=== PATIENT | female | born 1940 | race Caucasian/White ===

== ENCOUNTER 2020-04-01 08:51 | Outpatient (CLI) | payer OTHER, SELFPAY ==
[2020-04-01 09:19] LABS: Alanine Aminotransferase 24 U/L (4-35); Albumin Level 4.1 g/dL (3.5-5.1); Alkaline Phosphatase 31 U/L (38-126); Anion Gap 5 mmol/L (8-16); Aspartate Amino Transferase 30 U/L (14-36); Bilirubin,Total 0.4 mg/dL (0.2-1.3); Blood Urea Nitrogen 19 mg/dL (7-17); Calcium 9.3 mg/dL (8.4-10.2); Carbon Dioxide 33 mmol/L (22-30); Chloride 104 mmol/L (98-107); Cholesterol 202 mg/dL (0-200); Estimated Glomerular Filt Rate > 60; Glucose 95 mg/dL (65-105); HDL Direct 50 mg/dL; Potassium 4.3 mmol/L (3.4-5.0); Sodium 142 mmol/L (137-145); Triglycerides 64 mg/dL (<150)
[2020-04-01 09:30] LABS: LDL Cholesterol Direct 123 mg/dL
[2020-04-01 09:59] LABS: Vitamin D 25 Hydroxy 90.1 ng/mL
== END 2020-04-01 08:52 | disposition home or self-care (01) ==
PROVIDERS: PCP Internal Medicine; Visit Provider Nurse Practitioner
DX: E78.5 Hyperlipidemia, unspecified (principal); E55.9 Vitamin D deficiency, unspecified
CPT/HCPCS: 36415; 80053; 80061; 82306

== ENCOUNTER 2020-04-18 10:41 | Emergency (ER) | payer OTHER, SELFPAY ==
--- NOTE | ~2020-04-18 | XR_ITS ---
EXAMINATION: XR foot RT min 3V DATE: 04/18/2020 13:04 INDICATION: Right foot injury and pain. TECHNIQUE: 4 views of right foot were obtained. COMPARISON: None. FINDINGS: There is moderate hallux valgus. There is an oblique fracture of diaphysis of fifth metatar nico. The distal fracture fragment demonstrates 1 mm dorsal medial displacement. There is mild osteoar thritis of first metatarsophalangeal joint and many of the midfoot joints and interphalangeal joints. There are enthesophytes at the posterior and plantar aspects of calcaneal tuberosity. IMPRESSION: 1. Oblique fracture of diaphysis of fifth metatarsal. Reviewed, dictated and finalized at location A.
[2020-04-18 12:29] VITALS: BP 139/81; PULSE 72; RESP 18; TEMP 36.6; O2SAT 100
--- NOTE | 2020-04-18 14:22 | ED.LOWEXIN ---
HPI - Extremity Injury (Lower) General Chief Complaint: Extremity Injury, Lower Stated Complaint: toe injury Time Seen by Provider: 04/18/20 12:58 Source: patient Mode of arrival: ambulatory Limitations: no limitations History of Present Illness HPI Narrative: 79-year-old female This morning about 5 AM it sounds like she was scooting her chair back from a table and it caught on the rug and she fell backwards out of it and kicked the table with her right foot and has had pain in the lateral foot since that time Could not bear weight this morning but she can for a few steps now No other injuries MD complaint: foot injury Onset (ago): hour(s) Related Data Home Medications Medication Instructions Recorded Confirmed calcium carbonate 200 mg calcium See Rx Instructions PO .COMPLEX 02/23/20 04/10/20 (500 mg) chewable tablet tablet calcium carbonate 600 mg calcium 600 mg PO DAILY 02/23/20 04/10/20 (1,500 mg) tablet cholecalciferol (vitamin D3) 100 1,000 mcg PO DAILY cap 02/23/20 04/10/20 mcg (4,000 unit) capsule magnesium 250 mg tablet 250 mg PO DAILY 02/23/20 04/10/20 vit C 250 mg-E 200 unit-zinc 40 1 tablet PO BID 02/23/20 04/10/20 mg-copper 1 [id number] capsule Allergies Allergy/AdvReac Type Severity Reaction Status Date / Time amoxicillin Allergy Unknown Hives / Verified 04/18/20 12:52 Red Face Penicillins Allergy Unknown Hives Verified 04/18/20 12:52 Review of Systems Review of Systems: All systems reviewed & are unremarkable except as noted in HPI and below Constitutional: Constitutional: Denies fatigue and Denies weakness Cardiovascular: Cardiovascular: Denies chest pain Respiratory: Respiratory: Denies no additional respiratory complaints Musculoskeletal: Musculoskeletal: Denies back pain, Denies myalgias and Reports arthralgias Neurologic: Denies headache(s), Denies focal weakness and Denies numbness PMFSH Family History Family History Father Hypertension Cerebrovascular accident Patient's father is Mother Hypertension Family history of diabetes mellitus in first degree relative Family history of congestive heart failure Diabetes mellitus Sibling Family history of gastrointestinal disorder Family history of lung cancer Family history of heart disease in male family member before age 55 Patient's brother is Family history of cardiovascular disease Other Family history of malignant neoplasm of breast Social History Social History Smoking status: Never smoker Alcohol intake: never Gender identity (if verbalized by the patient): Female Exam Const: General: no acute distress and alert Orientation/consciousness: patient oriented x3 HENMT: Head: normal to inspection Eyes: EOM: EOMs intact bilaterally Resp: Effort & Inspection: normal respiratory effort Skin: General skin exam: normal color Neuro: General: patient oriented x3 and moves all extremities Extrem: Other: Tender lateral right foot with mild swelling and mild ecchymosis Course Vital Signs Vital signs: Vital Signs Temperature 36.6 C 04/18/20 12:29 Pulse Rate 72 04/18/20 12:29 Respiratory Rate 18 04/18/20 12:29 Blood Pressure 139/81 04/18/20 12:29 Pulse Oximetry 100 04/18/20 12:29 Temperature 36.6 C 04/18/20 12:29 Pulse Rate 72 04/18/20 12:29 Respiratory Rate 18 04/18/20 12:29 Blood Pressure 139/81 04/18/20 12:29 Pulse Oximetry 100 04/18/20 12:29 Discharge Plan Discharge Clinical Impression: Fracture of fifth metatarsal bone of right foot Patient Disposition: Home, Self-Care Condition: Stable Instructions: Crutch Instructions (ED), Foot Fracture in Adults (ED) Prescriptions: No Action Vitamin D3 100 mcg (4,000 unit) capsule 1,000 mcg PO DAILY RF: 0 magnesium 250
[2020-04-18 15:01] VITALS: BP 121/73; PULSE 66; RESP 17; O2SAT 100
== END 2020-04-18 15:03 | disposition home or self-care (01) ==
PROVIDERS: Emergency Provider Emergency Medicine; PCP Internal Medicine
DX: S92.351A Displaced fracture of fifth metatarsal bone, right foot, initial encounter for closed fracture (principal); W07.XXXA Fall from chair, initial encounter
CPT/HCPCS: 73630; 99284

== ENCOUNTER 2020-10-09 08:30 | Outpatient (CLI) | payer OTHER, SELFPAY ==
[2020-10-09 08:58] LABS: Add Urine Microscopic? YES; Appearance Urine Cloudy (Clear); Bacteria Urine Trace /hpf; Bilirubin Urine Negative (Negative); Blood Urine Negative (Negative); Color Urine Yellow (Yellow); Glucose Urine UA Negative (Negative); Ketones Urine Negative (Negative); Leukocyte Esterase Ur 3+ LEU/UL (Negative); Mucus Urine Rare /lpf; Nitrate Urine Negative (Negative); Protein Urine Negative (Negative); Specific Grav Ur 1.006 (1.001-1.035); Squamous Epithelial Cell Urine Occasional /hpf (Few); Urobilinogen Urine Negative mg/dL (<2.0); WBC Urine 21-30 /hpf
== END 2020-10-09 08:31 | disposition home or self-care (01) ==
PROVIDERS: PCP Internal Medicine; Visit Provider Internal Medicine
DX: R30.0 Dysuria (principal)
CPT/HCPCS: 81001; 87077; 87086; 87088; 87186

== ENCOUNTER 2021-01-14 12:40 | Outpatient (CLI) | payer OTHER, SELFPAY ==
[2021-01-14 13:13] LABS: Alanine Aminotransferase 26 U/L (4-35); Albumin Level 4.5 g/dL (3.5-5.1); Alkaline Phosphatase 40 U/L (38-126); Anion Gap 8 mmol/L (8-16); Aspartate Amino Transferase 33 U/L (14-36); Bilirubin,Total 0.3 mg/dL (0.2-1.3); Blood Urea Nitrogen 17 mg/dL (7-17); Calcium 10.3 mg/dL (8.4-10.2); Carbon Dioxide 30 mmol/L (22-30); Chloride 100 mmol/L (98-107); Cholesterol 215 mg/dL (0-200); Estimated Glomerular Filt Rate > 60; Glucose 94 mg/dL (65-105); HDL Direct 58 mg/dL; Potassium 4.2 mmol/L (3.4-5.0); Sodium 138 mmol/L (137-145); Triglycerides 108 mg/dL (<150)
[2021-01-14 13:24] LABS: LDL Cholesterol Direct 106 mg/dL
[2021-01-14 14:28] LABS: Vitamin D 25 Hydroxy > 126.0 ng/mL
== END 2021-01-14 12:41 | disposition home or self-care (01) ==
PROVIDERS: PCP Internal Medicine; Visit Provider Nurse Practitioner
DX: E78.5 Hyperlipidemia, unspecified (principal); E55.9 Vitamin D deficiency, unspecified
CPT/HCPCS: 36415; 80053; 80061; 82306

== ENCOUNTER 2021-11-02 13:06 | Emergency (ER) | payer OTHER, SELFPAY ==
--- NOTE | ~2021-11-02 | XR_ITS ---
EXAM: XR knee RT min 4V HISTORY: right knee pain, injury FALL COMPARISON: None available FINDINGS: Decreased mineralization. Mildly comminuted, minimally distracted transversely oriented fr acture of the right patella. No lytic or blastic lesion. Joint spaces maintained. No erosion or perio steal change. Moderate volume joint fluid. Soft tissues within normal limits. IMPRESSION: Mildly comminuted, minimally distracted right patellar fracture. Moderate joint effusion. Reviewed, dictated and finalized at location K.
[2021-11-02 13:06] VITALS: BP 167/76; PULSE 80; RESP 18; TEMP 36.8; O2SAT 99
--- NOTE | 2021-11-02 17:00 | ED.GENADULT ---
HPI - General Adult General Chief complaint: Extremity Injury, Lower Stated complaint: Right Knee Injury Time Seen by Provider: 11/02/21 14:21 Source: patient, family and RN notes reviewed Limitations: no limitations History of Present Illness HPI narrative: 81-year-old female presenting to the emergency department for evaluation after having a ground-level fall during which she landed on her right knee. Patient states that she did did strike her face on the ground but denies any neck pain back pain and denies any loss of consciousness. Related Data Home Medications Medication Instructions Recorded Confirmed calcium carbonate 600 mg calcium 600 mg PO DAILY 02/23/20 08/05/21 (1,500 mg) tablet magnesium 250 mg tablet 250 mg PO DAILY 02/23/20 08/05/21 vit C 250 mg-vit E 90 mg-zinc 40 1 tablet PO BID 02/23/20 01/15/21 mg-copper 1 [id number] capsule ascorbate calcium (vitamin C) 500 1 g PO BID tablet 11/25/20 08/05/21 mg tablet vitamin E 200 unit capsule 400 unit PO DAILY cap 11/25/20 08/05/21 Allergies Allergy/AdvReac Type Severity Reaction Status Date / Time amoxicillin Allergy Unknown Hives / Verified 11/02/21 13:12 Red Face Penicillins Allergy Unknown Hives Verified 11/02/21 13:12 Review of Systems Review of Systems: CONSTITUTIONAL: Denies fever, chills, or sweats. EYES: Denies visual changes, redness, or discharge. ENT: Denies rhinorrhea, congestion, sore throat, or otalgia. CARDIOVASCULAR: Denies chest pain, palpitations, or edema. RESPIRATORY: Denies cough or dyspnea. GASTROINTESTINAL: Denies abdominal pain, nausea, vomiting, or diarrhea. GENITOURINARY: Denies dysuria or hematuria. SKIN: Denies rash or itching. MUSCULOSKELETAL: See HPI NEUROLOGIC: Denies headache, numbness, or weakness. PSYCHIATRIC: Denies anxiety or depression. [facility] Past Medical History Medical History Fracture of fifth metatarsal bone History of tibial fracture Ankle Levoscoliosis Osteoarthritis of both knees Overweight (04/21/16) Screening for osteoporosis Screening mammogram, encounter for Surgical History Surgical History History of appendectomy (~1962) History of elbow surgery x2 Bones History of surgery Excision of Cyst on Tongue Family History Family History Father Hypertension Cerebrovascular accident Patient's father is Mother Hypertension Family history of diabetes mellitus in first degree relative Family history of congestive heart failure Diabetes mellitus Sibling Family history of gastrointestinal disorder Family history of lung cancer Family history of heart disease in male family member before age 55 Patient's brother is Family history of cardiovascular disease Other Family history of malignant neoplasm of breast Social History Social History Smoking status: Never smoker Second hand tobacco smoke exposure: Yes Alcohol intake: never Substance use: never Substance use type: does not use Gender identity (if verbalized by the patient): Female Exam Narrative: APPEARANCE: Well appearing, no pain, no distress, well-nourished. HEAD: normocephalic, mild swelling of the upper lip with no laceration. EYES: PERRLA/EOMI, conjunctivae clear. NOSE: Normal no drainage THROAT: Pharynx clear, no exudate. NECK: Supple. No adenopathy, no masses. RESPIRATORY: Airway patent, respirations nonlabored. Clear to auscultation bilaterally, no rales, rhonchi, wheezing. CARDIOVASCULAR: Regular rate and rhythm without murmurs rubs or gallops. ABDOMINAL: Soft, nontender, nondistended, normal bowel sounds MUSCULOSKELETAL: Tenderness to palpation and effusion of the right knee. NEURO: Alert. Cranial nerves II through XII intact. Gr
[2021-11-02 17:17] VITALS: BP 129/75; PULSE 66; RESP 18; O2SAT 98
== END 2021-11-02 17:19 | disposition home or self-care (01) ==
PROVIDERS: Emergency Provider Emergency Medicine; PCP Internal Medicine
DX: S82.041A Displaced comminuted fracture of right patella, initial encounter for closed fracture (principal); M19.90 Unspecified osteoarthritis, unspecified site; Z79.899 Other long term (current) drug therapy; Z88.0 Allergy status to penicillin; W19.XXXA Unspecified fall, initial encounter
CPT/HCPCS: 73564; 99284

== ENCOUNTER 2022-01-08 08:00 | Outpatient (RCR) | payer OTHER, SELFPAY ==
--- NOTE | 2021-12-09 17:22 | PTOPEVAL ---
PHYSICAL THERAPY INITIAL EVALUATION. Thank you for referring Irais Murphy to [facility] [place].? The patient is scheduled to be seen for therapy? 1x/week for 4 weeks. Please review, sign, date and return this plan of care RUBY. I agree with and certify that the following plan of care is medically necessary. Referring Physician Date Attending Provider: Jair Berg MD *PT Outpatient Evaluation Start: 12/09/21 Evaluation Information Diagnosis R patellar fracture Onset 1 month ago Subjective Information Pt states she fell at [employer] Query Text:As Reported By Patient/ about a month ago and Family fractured her patella. She wore a knee immobilizer for a few weeks. Pt states her still uses her walker if she is walking outside. She has no knee pain at this time. She states she walks down the stairs sideways as this causes her less pain, even before the fall. Pain Assessment Self Report Pain Assessment Right Knee(s) Reported Pain Level 0 Pain Description Pinching,Soreness Greatest Pain Intensity 5 Lower Extremity Range of Motion Gross Lower Extremity Range of Motion L knee active 0-115 Comments R knee active 0-105 R knee passive flexion 106 - limited by pain Lower Extremity Muscle Strength Testing General Lower Extremity Strength WFL/Left,WFL/Right Gross Lower Extremity Strength lisa hip flexion 4/5 L knee flexion/extension 4/5 R knee flexion/extension 4-/5 - pain reported with knee extension Gait Assessment Ambulation Assistive Devices None Gait Pattern Trendelenburg Gait,Wide Based Gait Other Gait Observations lateral trunk flexion bilaterally, decreased knee flexion lisa, lack of terminal knee extension lisa Safety Assessment Factors Affecting Safety No Concerns PT Clinical Summary Irais is an active 81 y/o female who presents to therapy today following a patella fracture and one month in a knee immobilizer. Today she demonstrates increased pain with resisted muscle testing, pain with max knee flexion,
--- NOTE | 2022-01-08 08:30 | PTOPEVAL ---
PHYSICAL THERAPY PROGRESS REPORT AND DISCHARGE SUMMARY. Thank you for referring Irais Murphy to [facility].? The patient is to be discharged from skilled therapy services at this time. Please review, sign, date and return this plan of care RUBY. I agree with and certify that the following plan of care is medically necessary. Referring Physician Date Attending Provider: Jair Berg MD Evaluation Information Diagnosis R patellar fracture Onset 1 month ago Subjective Information Pt states she does not have Query Text:As Reported By Patient/ any issues with pain. She Family states she can do everything she needs to do. She states she has a history of knee pain but this feels better as well after completing therapy. Pain Assessment Right Knee(s) Reported Pain Level 0 Greatest Pain Intensity 0 Lower Extremity Range of Motion Gross Lower Extremity Range of Motion L knee active 0-115 Comments R knee active 0-122 Lower Extremity Muscle Strength Testing General Lower Extremity Strength WFL/Left,WFL/Right Gross Lower Extremity Strength lisa hip flexion 4+/5 Lisa knee flexion/extension 4+/5 no reports of increased pain Balance Assessment Timed Up and Go Test (TUG) (Seconds) 10 Assistive Devices None 5 Time Sit to Stand Time in Seconds 15.5 5 Time Sit to Stand Comments Without use of UEs Gait Assessment Gait Pattern Wide Based Gait 2 Minute Walk Total Distance Walked (feet) 325 2 Minute Walk Gait Speed Score (feet/s) 2.70 Stair Climbing Assessment Stair Climbing Assistive Devices Railings Stair Climbing Comments Pt requires single railing and minimal UE support to ascend safety, and requires 2 hand rails and Mod A of UEs to control descent. Able to ascend and descend in a reciprical pattern. Safety Assessment Factors Affecting Safety No Concerns PT Clinical Summary Irais is an active 81 y/o female who presents to therapy today following a patella fracture and one month in a knee immobilizer. Today she reports no pain at rest or any in the last week. She demonstrates equal active ROM and strength when compared to her uninvolved side. She
== END 2022-01-08 14:54 | disposition home or self-care (01) ==
LOC: ANHPT 08:00
PROVIDERS: PCP Internal Medicine; Referring Provider Orthopaedic Surgery; Visit Provider Orthopaedic Surgery
DX: S82.001D Unspecified fracture of right patella, subsequent encounter for closed fracture with routine healing (principal)
CPT/HCPCS: 97110; 97112; 97161; 97530

== ENCOUNTER 2022-01-30 15:16 | Outpatient (CLI) | payer OTHER, SELFPAY ==
[2022-01-30 16:25] LABS: Alanine Aminotransferase 21 U/L (6-35); Albumin Level 4.4 g/dL (3.5-5.1); Alkaline Phosphatase 54 U/L (38-126); Anion Gap 7 mmol/L (8-16); Aspartate Amino Transferase 24 U/L (14-36); Bilirubin,Total 0.3 mg/dL (0.2-1.3); Blood Urea Nitrogen 17 mg/dL (7-17); Calcium 9.1 mg/dL (8.4-10.2); Carbon Dioxide 30 mmol/L (22-30); Chloride 99 mmol/L (98-107); Cholesterol 224 mg/dL (0-200); Estimated Glomerular Filt Rate > 60; Glucose 128 mg/dL (65-110); HDL Direct 58 mg/dL; Potassium 4.2 mmol/L (3.4-5.0); Sodium 136 mmol/L (137-145); Triglycerides 108 mg/dL (<150)
[2022-01-30 16:36] LABS: LDL Cholesterol Direct 118 mg/dL
[2022-01-30 17:07] LABS: Vitamin D 25 Hydroxy 78.1 ng/mL
== END 2022-01-30 15:17 | disposition home or self-care (01) ==
LOC: ANHLAB 15:23
PROVIDERS: PCP Internal Medicine; Visit Provider Nurse Practitioner
DX: E78.5 Hyperlipidemia, unspecified (principal); E55.9 Vitamin D deficiency, unspecified
CPT/HCPCS: 36415; 80053; 80061; 82306

== ENCOUNTER 2022-03-30 01:13 | Emergency (ER) | payer OTHER, SELFPAY ==
--- NOTE | ~2022-03-30 | XR_ITS ---
EXAMINATION: XR hip RT 2V w AP pelvis DATE: 03/30/2022 02:42 INDICATION: Right hip pain. Fall. TECHNIQUE: An anteroposterior view of the pelvis and 2 views of right hip were obtained. COMPARISON: None. FINDINGS: There is thoracolumbar levoscoliosis and severe lumbar spondylosis. No fracture. There is m ild osteoarthritis of the hips. Calcifications in the pelvis are likely uterine fibroids. IMPRESSION: 1. Mild osteoarthritis of the hips. Reviewed, dictated and finalized at location A.
--- NOTE | ~2022-03-30 | XR_ITS ---
EXAMINATION: XR wrist RT min 3V DATE: 03/30/2022 02:42 INDICATION: Right wrist pain. Fall. TECHNIQUE: 4 views of right wrist were obtained. COMPARISON: None. FINDINGS: Bone alignment is normal. No fracture. There is mild osteoarthritis of triscaphe joint and severe osteoarthritis of first carpometacarpal joint. There is a loose body in first carpometacarpal joint. IMPRESSION: 1. Polyarticular osteoarthritis. Reviewed, dictated and finalized at location A.
--- NOTE | ~2022-03-30 | XR_ITS ---
EXAMINATION: XR elbow RT min 3V DATE: 03/30/2022 02:41 INDICATION: Right elbow pain. Fall. TECHNIQUE: 4 views of right elbow were obtained. COMPARISON: None. FINDINGS: Bone alignment is normal. No acute fracture. There is internal fixation of proximal ulna wi th 2 plates with screws. There is mild elbow joint osteoarthritis. No elbow joint effusion. There are enthesophytes at medial and lateral humeral epicondyles. IMPRESSION: 1. Mild elbow joint osteoarthritis. Reviewed, dictated and finalized at location A.
--- NOTE | ~2022-03-30 | CT_ITS ---
EXAMINATION: CT brain wo con DATE: 03/30/2022 02:12 INDICATION: Head injury. TECHNIQUE: Computed tomography (CT) of the head was performed without intravenous contrast. The mA wa s adjusted according to patient size. Iterative reconstruction technique was employed. The dose-lengt h product was 605.33 mGy-cm. COMPARISON: None FINDINGS: There are scattered areas of low attenuation in the cerebral white matter. There is no intr acranial hemorrhage, acute infarction, or abnormal intracranial mass lesion. There are old infarcts i n the bilateral basal ganglia. The ventricles are normal in size. The paranasal sinuses are clear. Th e mastoid air cells are normal. IMPRESSION: 1. Old infarcts in the bilateral basal ganglia. 2. Moderate nonspecific cerebral white matter disease, which likely represents chronic small vessel i schemic disease. Reviewed, dictated and finalized at location A. IMPRESSION: 1. Old infarcts in the bilateral basal ganglia. 2. Moderate nonspecific cerebral white matter disease, which likely represents chronic small vessel ischemic disease.
--- NOTE | ~2022-03-30 | XR_ITS ---
EXAMINATION: XR shoulder RT min 2V DATE: 03/30/2022 02:41 INDICATION: Right shoulder pain. Fall. TECHNIQUE: 4 views of right shoulder were obtained. COMPARISON: None. FINDINGS: Bone alignment is normal. No fracture. There is moderate osteoarthritis of glenohumeral shanelle nt and mild osteoarthritis of acromioclavicular joint. IMPRESSION: 1. Polyarticular osteoarthritis. Reviewed, dictated and finalized at location A.
--- NOTE | ~2022-03-30 | CT_ITS ---
EXAMINATION: CT cervical spine wo con DATE: 03/30/2022 02:12 INDICATION: Neck pain status post fall. TECHNIQUE: Computed tomography (CT) of the cervical spine was performed without intravenous contrast. The dose-length product was 213 mGy-cm. Automated exposure control and iterative reconstruction tech nique were employed. COMPARISON: None FINDINGS: Straightening of cervical lordosis. There is degenerative anterolisthesis at C4-5 and C7-T1 . There is moderate multilevel uncinate and facet hypertrophy. No significant paraspinal soft tissue abnormality. There is patchy consolidation of the upper lobes, suspicious for pneumonia. No acute fra cture or traumatic malalignment. Craniovertebral junction is normal. IMPRESSION: 1. No acute abnormality of the cervical spine. 2: Moderate cervical spondylosis. 3: Patchy apical airspace disease in the lungs, suspicious for pneumonia. Reviewed, dictated and finalized at location B.
[2022-03-30 01:18] VITALS: BP 143/80; PULSE 67; RESP 20; TEMP 36.8; O2SAT 99
--- NOTE | 2022-03-30 01:28 | ED.GENADULT ---
HPI - General Adult General Chief complaint: Fall Stated complaint: fall with hematoma to head Time Seen by Provider: 03/30/22 01:20 History of Present Illness HPI narrative: Patient 81-year-old female who presents the emergency department with chief complaint of fall. Patient reports that she was tripped by her dog's at home and reports that she fell striking her right side against the ground. Patient reports she struck her head against a cabinet reports that she has a contusion on her scalp and also reports that she has some discomfort in her neck. Patient also reports shoulder pain right elbow pain and right wrist pain and right hip pain. Patient states the pain is worse with movement and improved with rest. Related Data Home Medications Medication Instructions Recorded Confirmed calcium carbonate 600 mg calcium 600 mg PO DAILY 02/23/20 02/16/22 (1,500 mg) tablet (Calcium) magnesium 250 mg tablet 250 mg PO DAILY 02/23/20 02/16/22 vit C 250 mg-vit E 90 mg-zinc 40 1 tablet PO BID 02/23/20 02/16/22 mg-copper 1 [id number] capsule (PreserVision AREDS-2) ascorbate calcium (vitamin C) 500 1 g PO BID 11/25/20 02/16/22 mg tablet vitamin E 200 unit capsule 400 unit PO DAILY 11/25/20 02/16/22 aflibercept 2 mg/0.05 mL 2 mg intravitreal ONCE 11/06/21 02/16/22 intravitreal solution for injection (Eylea) Allergies Allergy/AdvReac Type Severity Reaction Status Date / Time amoxicillin Allergy Unknown Hives / Verified 02/16/22 07:35 Red Face Penicillins Allergy Unknown Hives Verified 02/16/22 07:35 Review of Systems Review of Systems: A 10 system review of systems was completed on the patient and is negative except for what is stated in the HPI. Nursing and ancillary documentation was reviewed. COUNT INCLUDES THE [facility] Past Medical History Medical History (Updated 03/30/22 @ 03:21 by Adarsh Munguia MD) Allergies Arthritis Fracture of fifth metatarsal bone History of tibial fracture Ankle Levoscoliosis MS (multiple sclerosis) Nondisplaced fracture of right patella Osteoarthritis of both knees Overweight (04/21/16) Screening for osteoporosis Screening mammogram, encounter for Surgical History Surgical History History of ankle surgery History of appendectomy (~1962) History of elbow surgery x2 Bones History of surgery Excision of Cyst on Tongue Family History Family History Father Hypertension Cerebrovascular accident Patient's father is Mother Hypertension Family history of diabetes mellitus in first degree relative Family history of congestive heart failure Diabetes mellitus Sibling Family history of gastrointestinal disorder Family history of lung cancer Family history of heart disease in male family member before age 55 Patient's brother is Family history of cardiovascular disease Other Family history of malignant neoplasm of breast Social History Social History Smoking status: Never smoker Second hand tobacco smoke exposure: Yes Alcohol intake: never Substance use: never Substance use type: does not use Gender identity (if verbalized by the patient): Female Exam Narrative: GENERAL: Well-appearing, well-nourished, and in no acute distress. HEAD: Normocephalic, small contusion present to the occipital region of the scalp. EYES: PERRLA and EOMI. ENT: Nares clear, no rhinorrhea or epistaxis. Mucous membranes moist. NECK: Supple. CHEST: Clear to auscultation. No respiratory distress. HEART: Regular rate and rhythm. No murmur heard. Normal peripheral pulses. ABDOMEN: Soft, nontender, nondistended, normal active bowel sounds. EXTREMITIES: Normal range of motion. No edema. There is tenderness to palpation of the right shoulder, right elbow, right wrist and rig
[2022-03-30 01:37] VITALS: PULSE 69; RESP 12; O2SAT 96
[2022-03-30 02:37] VITALS: PULSE 63; RESP 12; O2SAT 96
[2022-03-30 03:25] VITALS: BP 145/75; PULSE 72; RESP 16; O2SAT 98
== END 2022-03-30 03:25 | disposition home or self-care (01) ==
PROVIDERS: Emergency Provider Emergency Medicine; PCP Internal Medicine
DX: S00.03XA Contusion of scalp, initial encounter (principal); S50.01XA Contusion of right elbow, initial encounter; S40.011A Contusion of right shoulder, initial encounter; S70.01XA Contusion of right hip, initial encounter; G35 Multiple sclerosis; M17.0 Bilateral primary osteoarthritis of knee; E66.3 Overweight; M16.0 Bilateral primary osteoarthritis of hip; M19.031 Primary osteoarthritis, right wrist; M19.011 Primary osteoarthritis, right shoulder; M19.021 Primary osteoarthritis, right elbow; R90.82 White matter disease, unspecified; M47.812 Spondylosis without myelopathy or radiculopathy, cervical region; R91.8 Other nonspecific abnormal finding of lung field; W01.0XXA Fall on same level from slipping, tripping and stumbling without subsequent striking against object, initial encounter
CPT/HCPCS: 70450; 72125; 73030; 73080; 73110; 73502; 99284

== ENCOUNTER 2022-09-02 16:47 | Emergency (ER) | payer OTHER, SELFPAY ==
[2022-09-02 17:23] VITALS: BP 145/69; PULSE 73; RESP 16; TEMP 36.3; O2SAT 99
[2022-09-02 18:35] VITALS: BP 136/79; PULSE 74; RESP 16; TEMP 36.7; O2SAT 100
[2022-09-02 20:25] LABS: Appearance Urine Clear (Clear); Bilirubin Urine Negative (Negative); Blood Urine Trace-lysed (Negative); Color Urine Light Yellow (Yellow); Glucose Urine UA Negative (Negative); Ketones Urine Negative (Negative); Leukocyte Esterase Ur 3+ LEU/UL (Negative); Nitrate Urine Positive (Negative); Protein Urine Negative (Negative); Specific Grav Ur 1.015 (1.001-1.035); Urobilinogen Urine 0.2 mg/dL (<2.0)
--- NOTE | 2022-09-02 20:26 | ED.FEMALEGU ---
HPI - Female Genitourinary General Chief complaint: Urogenital-Female Stated complaint: UTI/ urinary prolapse Time Seen by Provider: 09/02/22 20:13 History of Present Illness HPI Narrative: Patient is an 81-year-old female with a history of bladder prolapse here for evaluation of dysuria and swollen genitals for the past 2 days. Patient states that when she urinates she has noticed a small amount of blood in her urine in addition to a thick white vaginal discharge. She states that she looked at her pelvic region and noticed that her genitals were swollen and irritated to touch. She has a history of bladder prolapse and has seen a administrative support associate in the past, was offered a pessary and declined because she thought it was uncomfortable. She denies any urinary retention, lower abdominal pain, nausea or vomiting, fevers or chills. Related Data Home Medications Medication Instructions Recorded Confirmed calcium carbonate 600 mg calcium 600 mg PO DAILY 02/23/20 08/25/22 (1,500 mg) tablet (Calcium) magnesium 250 mg tablet 250 mg PO DAILY 02/23/20 08/25/22 vit C 250 mg-vit E 90 mg-zinc 40 1 tablet PO BID 02/23/20 08/25/22 mg-copper 1 [id number]-[id number] capsule (PreserVision AREDS-2) ascorbate calcium (vitamin C) 500 1 g PO BID 11/25/20 08/25/22 mg tablet vitamin E 200 unit capsule 400 unit PO DAILY 11/25/20 08/25/22 aflibercept 2 mg/0.05 mL 2 mg intravitreal ONCE 11/06/21 08/25/22 intravitreal solution for injection (Eylea) cholecalciferol (vitamin D3) 50 50 mcg PO DAILY 08/25/22 08/25/22 mcg (2,000 unit) tablet Allergies Allergy/AdvReac Type Severity Reaction Status Date / Time amoxicillin Allergy Unknown Hives / Verified 08/25/22 07:44 Red Face Penicillins Allergy Unknown Hives Verified 08/25/22 07:44 Review of Systems Review of Systems: Gen.: Denies fevers or chills Eyes: Denies eye pain or visual change ENT: Denies congestion Respiratory: Denies shortness of breath or cough CV: Denies chest pain or palpitations GI: Denies abdominal pain nausea, emesis or diarrhea reports genitalia swelling and dysuria. Musculoskeletal: Denies back pain or muscle pain Neuro: Denies numbness, tingling, weakness or focal weakness Skin: Denies rash Except as documented, all other systems reviewed and negative [facility] Past Medical History Medical History Allergies Arthritis Fracture of fifth metatarsal bone History of tibial fracture Ankle Levoscoliosis MS (multiple sclerosis) Nondisplaced fracture of right patella Osteoarthritis of both knees Overweight (04/21/16) Screening for osteoporosis Screening mammogram, encounter for Surgical History Surgical History History of ankle surgery History of appendectomy (~196) History of elbow surgery x2 Bones History of surgery Excision of Cyst on Tongue Family History Family History Father Hypertension Cerebrovascular accident Patient's father is Mother Hypertension Family history of diabetes mellitus in first degree relative Family history of congestive heart failure Diabetes mellitus Sibling Family history of gastrointestinal disorder Family history of lung cancer Family history of heart disease in male family member before age 55 Patient's brother is Family history of cardiovascular disease Other Family history of malignant neoplasm of breast Social History Social History Smoking status: Never smoker Second hand tobacco smoke exposure: Yes Alcohol intake: never Substance use: never Substance use type: does not use Living arrangements: with family Gender identity (if verbalized by the patient): Female Exam Narrative: APPEARANCE: Well appearing, no pain in
[2022-09-02 20:35] LABS: Add Urine Microscopic? YES
[2022-09-02 20:44] LABS: Mucus Urine Rare /lpf; WBC Clumps Urine Present /HPF; WBC Urine >75 /hpf
[2022-09-02 21:12] VITALS: BP 136/72; PULSE 80; RESP 16; O2SAT 99
[2022-09-02 21:40] LABS: Bacteria Urine 1+ /hpf
== END 2022-09-02 21:12 | disposition home or self-care (01) ==
PROVIDERS: Emergency Medicine; Emergency Provider Physician Assistant; PCP Nurse Practitioner
DX: N39.0 Urinary tract infection, site not specified (principal); M19.90 Unspecified osteoarthritis, unspecified site
CPT/HCPCS: 81001; 87070; 87086; 87147; 87186; 87491; 87591; 87808; 99284

== ENCOUNTER 2022-09-19 08:25 | Outpatient (CLI) | payer OTHER, SELFPAY ==
[2022-09-19 09:42] LABS: Alanine Aminotransferase 22 U/L (6-35); Albumin Level 4.6 g/dL (3.5-5.1); Alkaline Phosphatase 34 U/L (38-126); Anion Gap 4 mmol/L (8-16); Aspartate Amino Transferase 27 U/L (14-36); Bilirubin,Total 0.6 mg/dL (0.2-1.3); Blood Urea Nitrogen 11 mg/dL (7-17); Calcium 9.1 mg/dL (8.4-10.2); Carbon Dioxide 33 mmol/L (22-30); Chloride 104 mmol/L (98-107); Cholesterol 180 mg/dL (0-200); Estimated Glomerular Filt Rate > 60; Glucose 95 mg/dL (65-110); HDL Direct 67 mg/dL; Potassium 3.9 mmol/L (3.4-5.0); Sodium 141 mmol/L (137-145); Triglycerides 48 mg/dL (<150)
[2022-09-19 09:53] LABS: LDL Cholesterol Direct 88 mg/dL
[2022-09-19 10:14] LABS: Vitamin D 25 Hydroxy 75.7 ng/mL
== END 2022-09-19 08:26 | disposition home or self-care (01) ==
PROVIDERS: PCP Internal Medicine; Visit Provider Nurse Practitioner Family
DX: Z00.00 Encounter for general adult medical examination without abnormal findings (principal); E55.9 Vitamin D deficiency, unspecified; N39.0 Urinary tract infection, site not specified
CPT/HCPCS: 36415; 80053; 80061; 82306

== ENCOUNTER 2022-09-25 06:46 | Outpatient (CLI) | payer OTHER, SELFPAY ==
[2022-09-25 07:44] LABS: Appearance Urine Clear (Clear); Bacteria Urine 1+ /hpf; Bilirubin Urine Negative (Negative); Blood Urine Negative (Negative); Color Urine Yellow (Yellow); Glucose Urine UA Negative (Negative); Ketones Urine Negative (Negative); Leukocyte Esterase Ur Trace LEU/UL (NEGATIVE); Nitrate Urine Negative (Negative); Non Pathogenic Casts 0-2; Protein Urine Negative (Negative); RBC Urine 0-2 /hpf (0-2); Specific Grav Ur 1.009 (1.001-1.035); Squamous Epithelial Cell Urine None seen /hpf (Few); Urobilinogen Urine 0.2 mg/dL (<2.0); WBC Urine 0-5 /hpf (0-3)
[2022-09-25 07:51] LABS: Add Urine Microscopic? YES
== END 2022-09-25 06:47 | disposition home or self-care (01) ==
LOC: ANHLAB 06:49
PROVIDERS: PCP Internal Medicine; Visit Provider Nurse Practitioner Family
DX: N39.0 Urinary tract infection, site not specified (principal)
CPT/HCPCS: 81001; 87086; 87147; 87181; 87186

== ENCOUNTER 2023-04-07 12:30 | Outpatient (CLI) | payer OTHER, SELFPAY ==
--- NOTE | ~2023-04-07 | MR_ITS ---
EXAMINATION: MR brain/brain stem wo/w con, MR orbits face neck wo/w con DATE: 04/07/2023 14:49 INDICATION: Multiple sclerosis TECHNIQUE: 1. Magnetic resonance imaging (MRI) of the brain and brainstem was performed without and with 11 mL M ultihance intravenous contrast. Sequences included sagittal and axial T1-weighted FLAIR, axial T1-gifty ghted FSE, axial diffusion-weighted FS EPI, sagittal T2-weighted FLAIR, axial 3-D SWAN, axial T2-weig hted FLAIR Propeller, and axial T2-weighted Propeller. Postcontrast sequences included axial, coronal , and sagittal T1-weighted FSE. Apparent diffusion coefficient (ADC) maps were created. 2. MRI of the face and orbits was performed without and with 11 mL MultiHance intravenous contrast ut ilizing the same contrast bolus. Sequences included small ntzhl-kl-bwjv sequences of the orbits inclu ded coronal and axial T2-weighted FS FSE, T1-weighted FSE and postcontrast T1-weighted FS FSE. COMPARISON: Brain MR dated 12/26/2018 FINDINGS: There are no areas of restricted diffusion to suggest acute infarction. No intracranial hemorrhage or abnormal intracranial mass lesion. No significant interval change in numerous bilateral T2 hyperinte nse lesions which are primarily juxtacortical and periventricular, the latter with typical radiating pericallosal pattern consistent with provided history of multiple sclerosis. This was previously paula mated at greater than 40 total lesions but many are becoming essentially confluent rendering differen tiation of indeterminate lesions somewhat challenging and the assessment somewhat subjective. There a djacent rib new lesion in the left cerebellum best appreciated on the sagittal T2 FLAIR image. A few of the larger lesions demonstrate corresponding decreased T1 signal. None of the intracranial lesions demonstrate contrast enhancement. There is however an enhancing lesion along the left optic nerve at the posterior aspect of the conus. No abnormal enhancement or signal along the right optic nerve. Th e ventricles are symmetric and normal in size. There are no abnormal extra-axial fluid collections. F low voids are seen in the cerebral arteries on the T2-weighted sequences consistent with their expect ed patency. Changes of bilateral intraocular lens replacement. Mild mucosal thickening the bilateral ethmoid sinuses. IMPRESSION: 1. New small left cerebellar white matter T2 hyperintense lesion with otherwise no significant change in moderate amount of cerebral white matter T2 hyperintensity, many lesions with typical pericallosa l pattern for multiple sclerosis consistent with consistent with the provided history. Differential w ould also include chronic small vessel ischemic disease or some degree of combination thereof. 2. New enhancing lesion along the left optic nerve consistent with active multiple sclerosis. Correla te with ophthalmic exam and for any new visual deficits. Reviewed, dictated and finalized at location A. IMPRESSION: 1. New small left cerebellar white matter T2 hyperintense lesion with otherwise no significant change in moderate amount of cerebral white matter T2 hyperinte nsity, many lesions with typical pericallosal pattern for multiple sclerosis co nsistent with consistent with the provided history. Differential would also inc lude chronic small vessel ischemic disease or some degree of combination thereo f. 2. New enhancing lesion along the left optic nerve consistent with active multi ple sclerosis. Correlate with ophthalmic exam and for any new visual deficits.
--- NOTE | ~2023-04-07 | MR_ITS ---
MRI of the thoracic spine Clinical History: Multiple sclerosis Technique: Axial T2-weighted and gradient images, and sagittal T1-weighted, T2-weighted, and STIR nidhi ges were acquired.. Following intravenous administration of 11 cc MultiHance gadolinium, T1-weighted fat-sat imaging was performed in the axial and sagittal planes. Findings: There is no fracture or subluxation of the thoracic spine. Vertebral bodies maintain normal height and alignment. No suspicious bone marrow signal abnormality seen. There is disc osteophyte complex at T7-T8, which minimally flattens the ventral cord. There is focal prominence of the central canal the spinal cord at the T7 level (series 29 images 31-34). No other ar eas of canal stenosis or cord compression identified. No other abnormal signal seen in the spinal cor d. Paravertebral soft tissues are unremarkable. No abnormal postcontrast enhancement identified. 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 No abnormal postcontrast enhancement identified in the spina l cord. Disc osteophyte complex at T7-T8, which minimally flattens the ventral cord. Reviewed, dictated and finalized at location M. 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 No abnormal postcontrast enhancement i dentified in the spinal cord. Disc osteophyte complex at T7-T8, which minimally flattens the ventral cord.
--- NOTE | ~2023-04-07 | MR_ITS ---
MRI of the cervical spine Clinical History: Multiple sclerosis Technique: Axial T2-weighted and gradient images, and sagittal T1-weighted, T2-weighted, and STIR nidhi ges were acquired. Following intravenous administration of 11 cc MultiHance gadolinium, T1-weighted f at-sat imaging was performed in the sagittal planes. Findings: There is no fracture of cervical spine. There is minimal grade 1 anterolisthesis of C4 over C5. No suspicious bone marrow signal abnormality seen. At C2-C3, there is no disc bulge or herniation. No spinal canal stenosis, cord compression, or neural foraminal narrowing. At C3-C4, there is minimal disc osteophyte complex. There is right facet arthropathy with right neura l foraminal narrowing. No central canal stenosis, cord compression, or left neural foraminal narrowin g. At C4-C5, there is minimal disc osteophyte complex. There is bilateral facet arthropathy. Possible mi nimal left neural foraminal narrowing. No central canal stenosis, cord compression, or right neural f oraminal narrowing. At C5-C6, there is disc osteophyte complex and bilateral facet arthropathy. There is bilateral neural foraminal narrowing. No central canal stenosis or cord compression. At C6-C7, there is disc osteophyte complex. There is minimal facet arthropathy. Possible minimal left neural foraminal narrowing. No central canal stenosis, cord compression, or definite right neural fo raminal narrowing. No abnormal signal seen in the spinal cord. Paravertebral soft tissues are unremarkable. No abnormal postcontrast enhancement identified. Impression: No abnormal spinal cord lesions in the cervical spine. Mild degenerative spondylosis of the cervical spine, as detailed above. Reviewed, dictated and finalized at [facility]. Impression: No abnormal spinal cord lesions in the cervical spine. Mild degenerative spondylosis of the cervical spine, as detailed above.
== END 2023-04-07 12:31 | disposition home or self-care (01) ==
PROVIDERS: PCP Nurse Practitioner Family; Visit Provider Student in an Organized Health Care Education/Training Program
DX: G35 Multiple sclerosis (principal); M47.812 Spondylosis without myelopathy or radiculopathy, cervical region; M25.78 Osteophyte, vertebrae
CPT/HCPCS: 70543; 70553; 72156; 72157; A9577

== ENCOUNTER 2023-04-09 15:22 | Inpatient (IN) | payer OTHER, SELFPAY ==
[2023-04-09 15:25] VITALS: BP 162/76; PULSE 66; RESP 19; TEMP 36.4; O2SAT 100
[2023-04-09 17:12] LABS: Basophils Percent Auto 0.7 % (0.2-1.2); Eosinophils Absolute Auto 0.1 K/mm3 (0-0.3); Eosinophils Percent Auto 2.7 % (0-4.4); Hematocrit 36.9 % (37.0-47.0); Hemoglobin 11.8 g/dL (12.0-15.0); Immature Granulocyte Absolute 0.01 K/mm3 (0.00-0.031); Immature Granulocyte Percent A 0.2 % (0-0.5); Lymphocytes Absolute Auto 1.14 K/mm3 (0.9-3.2); Lymphocytes Percent Auto 28.1 % (18.3-44.2); Mean Corpuscular Hemoglobin 30.2 pg (26-34); Mean Corpuscular Volume 94.4 fl (80-100); Mean Platelet Volume 10.7 fl (7.4-10.4); Monocytes Absolute Auto 0.3 K/mm3 (0.1-0.6); Monocytes Percent Auto 7.1 % (2.6-8.5); Neutrophils Absolute Auto 2.5 K/mm3 (1.3-6.7); Neutrophils Percent Auto 61.2 % (45.5-73.1); Platelet Count Result 145 k/mm3 (150-375); Red Blood Count 3.91 M/mm3 (4.2-5.4); White Blood Count 4.1 K/mm3 (4.5-10.0)
[2023-04-09 17:26] LABS: Alanine Aminotransferase 20 U/L (6-35); Albumin Level 4.1 g/dL (3.5-5.1); Alkaline Phosphatase 35 U/L (38-126); Anion Gap 5 mmol/L (8-16); Aspartate Amino Transferase 27 U/L (14-36); Bilirubin,Total 0.4 mg/dL (0.2-1.3); Blood Urea Nitrogen 16 mg/dL (7-17); CRP < 0.5 mg/dL (<1.0); Carbon Dioxide 28 mmol/L (22-30); Chloride 103 mmol/L (98-107); Estimated CRCL calculation 68 ml/min; Estimated Glomerular Filt Rate > 60; Glucose 97 mg/dL (65-110); Potassium 3.9 mmol/L (3.4-5.0); Sodium 136 mmol/L (137-145)
[2023-04-09 18:03] LABS: Erythrocyte Sedimentation Rate 18 mm/hr (0-20)
--- NOTE | 2023-04-09 18:07 | ED.EYEPROB ---
HPI - Eye Problem General Chief complaint: Eye Problems Stated complaint: eye problems Time Seen by Provider: 04/09/23 15:33 History of Present Illness HPI Narrative: This is an 82-year-old female, with history of macular degeneration, who presents emergency department recommendation by neurologist, Dr. Low for multiple sclerosis. The patient states over the past 8 weeks, she is noted worsening vision. She was evaluated by Dr. Low, and MRI demonstrated changes consistent with optic neuritis. She has no other complaints at this time. Related Data Home Medications Medication Instructions Recorded Confirmed calcium carbonate 600 mg calcium 600 mg PO DAILY 02/23/20 03/11/23 (1,500 mg) tablet (Calcium) magnesium 250 mg tablet 250 mg PO DAILY 02/23/20 03/11/23 ascorbate calcium (vitamin C) 500 1 g PO BID 11/25/20 03/11/23 mg tablet vitamin E 200 unit capsule 400 unit PO DAILY 11/25/20 03/11/23 aflibercept 2 mg/0.05 mL 2 mg intravitreal ONCE 11/06/21 03/11/23 intravitreal solution for injection (Eylea) cholecalciferol (vitamin D3) 50 50 mcg PO DAILY 08/25/22 03/11/23 mcg (2,000 unit) tablet amino acid-hydrolyzed ea PO 03/11/23 03/11/23 collagen-whey 15 gram-100 kcal/30 mL oral liquid vit C 250 mg-vit E 90 mg-zinc 40 1 tablet PO BID 03/18/23 mg-copper 1 [id number]-gzvdit capsule (PreserVision AREDS-2) Allergies Allergy/AdvReac Type Severity Reaction Status Date / Time amoxicillin Allergy Unknown Hives / Verified 03/18/23 07:30 Red Face Penicillins Allergy Unknown Hives Verified 03/18/23 07:30 Review of Systems Review of Systems: CONSTITUTIONAL: Denies fever, chills, or sweats. EYES: Progressive loss of vision denies redness, or discharge. CARDIOVASCULAR: Denies chest pain, palpitations, or edema. RESPIRATORY: Denies cough or dyspnea. GASTROINTESTINAL: Denies abdominal pain, nausea, vomiting, or diarrhea. GENITOURINARY: Denies dysuria or hematuria. SKIN: Denies rash or itching. MUSCULOSKELETAL: Denies back pain, joint pain, or myalgia. NEUROLOGIC: Denies headache, numbness, dizziness, or weakness. PSYCHIATRIC: Denies anxiety or depression. [facility] Past Medical History Medical History Allergies Arthritis Fracture of fifth metatarsal bone History of tibial fracture Ankle Levoscoliosis MS (multiple sclerosis) Nondisplaced fracture of right patella Osteoarthritis of both knees Overweight (04/21/16) Screening for osteoporosis Screening mammogram, encounter for Surgical History Surgical History History of ankle surgery History of appendectomy (~1961) History of elbow surgery x2 Bones History of surgery Excision of Cyst on Tongue Family History Family History Father Hypertension Cerebrovascular accident Patient's father is Mother Hypertension Family history of diabetes mellitus in first degree relative Family history of congestive heart failure Diabetes mellitus Sibling Family history of gastrointestinal disorder Family history of lung cancer Family history of heart disease in male family member before age 55 Patient's brother is Family history of cardiovascular disease Other Family history of malignant neoplasm of breast Social History Social History Smoking status: Never smoker Second hand tobacco smoke exposure: Yes Alcohol intake: never Substance use: never Substance use type: does not use Lack of Transportation: No Lack of Food: Never True Current Housing: I Have Housing Concerned About Future Housing: No Difficulty Paying Gas/Electric Bills: No Difficulty Paying for Meds: No Currently Unemployed: No Education: High School Diploma/GED Living arrangements: domi
[2023-04-09 19:18] VITALS: BP 148/86; PULSE 72; RESP 15; O2SAT 99
[2023-04-09] MEDS: methylPREDNISolone SOD SUCC 500 MG in DEXTROSE 5% 100 ML 200 MG IVPB (19:18)
--- NOTE | 2023-04-09 20:13 | ADMGEN ---
This patient, Irais Murphy, was admitted to 2 Medical Room 256-. Patient/family oriented to hospital policies and general routines including ID bracelet, bed and alarms, visiting hours, pain management, procedures, bathroom and other care routines, personal items, smoking policy, room service/diet, and visiting hours. Information on how to activate the Rapid Response Team has been discussed. Patient/Family are encouraged to report perceived risks to care and to ask questions if they do not understand what they are told or what they should do.
[2023-04-09 20:22] VITALS: BP 157/70; PULSE 76; RESP 16; TEMP 36.6; O2SAT 96; BMI 24.6
--- NOTE | 2023-04-09 23:30 | PM.IMHP ---
H&P: HPI History of Present Illness Date/Time: 04/09/23 23:30 Chief Complaint: Decreased vision in left eye. Narrative: This is a very pleasant 82-year-old female with multiple sclerosis who presented to the ED for evaluation of decreased vision in left eye. The patient provides the following history. She was diagnosed with MS in 2000 though she was never treated with disease modifying therapies. Over the last year so she has developed a decrease in vision in the left eye which seems to be getting worse. She has occasional dysphagia but that is not a new finding. She had imaging done yesterday per Dr. Low and she was told to come to the ER for admission in order to receive IV steroids due to new enhancing lesion along the left optic nerve consistent with active MS. At the time my evaluation she has no complaints. Review of Systems Review of Systems: Twelve systems were reviewed. No vertigo. No focal weakness. No concerns for aspiration. Denies difficulty speaking. No fever, chills, or sweats. She denies recent cold and flu symptoms. No chest pain shortness a breath. No nausea, vomiting, or diarrhea. Except as documented, all other systems were reviewed and are negative. [facility] Past Medical History Medical History (Updated 04/11/23 @ 14:47 by Sravani Jade PA-C) Allergies Arthritis Multiple sclerosis Osteoarthritis of both knees Surgical History Surgical History (Updated 04/11/23 @ 14:47 by Sravani Jade PA-C) History of ankle surgery History of appendectomy (1961) History of elbow surgery Family History Family History Father Hypertension Cerebrovascular accident Patient's father is Mother Hypertension Family history of diabetes mellitus in first degree relative Family history of congestive heart failure Diabetes mellitus Sibling Family history of gastrointestinal disorder Family history of lung cancer Family history of heart disease in male family member before age 55 Patient's brother is Family history of cardiovascular disease Other Family history of malignant neoplasm of breast Social History Social History (Updated 04/11/23 @ 14:48 by Sravani Jade PA-C) Social History: Surrogate medical decision maker: Kinza Dunn, daughter. Code status: Full code. Smoking status: Never smoker Second hand tobacco smoke exposure: Yes Alcohol intake: never Substance use: never Substance use type: does not use Lack of Transportation: No Lack of Food: Never True Current Housing: I Have Housing Concerned About Future Housing: No Difficulty Paying Gas/Electric Bills: No Difficulty Paying for Meds: No Currently Unemployed: No Education: High School Diploma/GED Difficulty w/ Childcare or Family Care: No Living arrangements: with family Spiritual care concerns: No Meds Home Medications and Allergies Home Medications Medication Instructions Recorded Confirmed Type calcium carbonate 600 mg calcium 600 mg PO DAILY 02/23/20 04/09/23 History (1,500 mg) tablet (Calcium) magnesium 250 mg tablet 250 mg PO DAILY 02/23/20 04/09/23 History ascorbate calcium (vitamin C) 500 1 g PO BID 11/25/20 04/09/23 History mg tablet vitamin E 200 unit capsule 400 unit PO DAILY 11/25/20 04/09/23 History aflibercept 2 mg/0.05 mL 2 mg intravitreal ONCE 11/06/21 04/09/23 History intravitreal solution for injection (Eylea) cholecalciferol (vitamin D3) 50 50 mcg PO DAILY 08/25/22 04/09/23 History mcg (2,000 unit) tablet amino acid-hydrolyzed 1 ea PO DAILY 03/11/23 04/09/23 History collagen-whey 15 gram-100 kcal/30 mL oral liquid vit C 250 mg-vit E 90 mg-zinc 40 1 tablet PO BID 03/18/23 04/09/23 History mg-copper 1 [id number]-[id number] capsule (PreserVision AREDS-2) Allergies Allergy/AdvReac Type Severity Reaction Status Date / Time am
[2023-04-10 03:39] LABS: Basophils Percent Auto 0.3 % (0.2-1.2); Hemoglobin 12.7 g/dL (12.0-15.0); Immature Granulocyte Absolute 0.01 K/mm3 (0.00-0.031); Immature Granulocyte Percent A 0.3 % (0-0.5); Lymphocytes Absolute Auto 0.42 K/mm3 (0.9-3.2); Lymphocytes Percent Auto 10.6 % (18.3-44.2); Mean Corpuscular HGB Conc 33.4 g/dl (32-36); Mean Corpuscular Hemoglobin 30.8 pg (26-34); Mean Platelet Volume 10.9 fl (7.4-10.4); Monocytes Percent Auto 0.5 % (2.6-8.5); Neutrophils Absolute Auto 3.5 K/mm3 (1.3-6.7); Neutrophils Percent Auto 88.3 % (45.5-73.1); Platelet Count Result 150 k/mm3 (150-375); Red Blood Count 4.13 M/mm3 (4.2-5.4); Red Cell Distribution Width 12.7 % (11.5-14.5)
[2023-04-10 04:09] LABS: Anion Gap 0 mmol/L (8-16); Blood Urea Nitrogen 15 mg/dL (7-17); Calcium 9.1 mg/dL (8.4-10.2); Carbon Dioxide 32 mmol/L (22-30); Chloride 106 mmol/L (98-107); Estimated CRCL calculation 68 ml/min; Estimated Glomerular Filt Rate > 60; Glucose 157 mg/dL (65-110); Magnesium 2.1 mg/dL (1.6-2.3); Potassium 3.7 mmol/L (3.4-5.0); Sodium 138 mmol/L (137-145)
[2023-04-10 04:40] LABS: Thyroid Stimulating Hormone Reflex 0.613 uIU/mL (0.465-4.68)
[2023-04-10 04:44] VITALS: BP 138/69; PULSE 75; RESP 20; TEMP 36.6; O2SAT 96
--- NOTE | 2023-04-10 08:04 | PM.IMPN ---
Progress Note: A&P Assessment and Plan (1) Left optic neuritis: Code(s): H46.9 - Unspecified optic neuritis Status: Acute Assessment and Plan: Active MS flare seen on MRI. Direct admit by Dr Low Starting methylprednisone 500 gram BID Neurology following the case. Assistance in management is appreciated. WBC 4.0 (2) Multiple sclerosis: Code(s): G35 - Multiple sclerosis Status: Acute Assessment and Plan: see above (3) Suprapubic pain: Code(s): R10.2 - Pelvic and perineal pain Status: Acute Assessment and Plan: States this has been ongoing for the last few months. Last UTI was in 09/24 per our records. Per the patient she stopped taking her antibiotic because she did not like the way it made her feel. having suprapubic pain urinary frequency and hesitancy obtain U/a and reflex to culture. started on rocephin empirically Subjective Date/time seen: 04/10/23 08:04 Interval history: HPI obtained from chart, This is a very pleasant 82-year-old female with multiple sclerosis who presented to the ED for evaluation of decreased vision in left eye. The patient provides the following history. She was diagnosed with MS in 2000 though she was never treated with disease modifying therapies. Over the last year so she has developed a decrease in vision in the left eye which seems to be getting worse. She has occasional dysphagia but that is not a new finding. She had imaging done yesterday per Dr. Low and she was told to come to the ER for admission in order to receive IV steroids due to new enhancing lesion along the left optic nerve consistent with active MS. 04/10-extremely pleasant lady who says that she is just here for few steroids. She reports that she has of vision changes to her left eye. She says that she can see when looking at the television however when she is looking at her phone or trying to read the letters are blurry, malin and distorted. She has intermittent pain to her left eye as well. She also complains of some lower suprapubic and lower abdominal pain. She says that she recently was treated for UTI however she did not care for the antibiotic so she stopped taking it in hopes that the infection would resolve. That was back in September of this year and she says that her symptoms of lower abdominal pain, frequency, and hesitancy have continued. Will obtain urine specimen today check for UTI. Review of Systems Review of Systems: All systems reviewed & are unremarkable except as noted in HPI and below Exam Narrative: General: well appearing, well developed, well nourished, appears stated age. HEENT: normocephalic, atraumatic. Mucous membranes moist. EOMI, PERRLA, bilateral sclera anicteric, no conjunctival injection. Neck supple without JVD, lymphadenopathy, or bruit. Respiratory: clear to auscultation bilaterally. No rales/rhonic/wheezes. Cardiovascular: Regular rate and rhythm, normal S1-S2 upon auscultation. No murmurs, rubs, or clicks. PMI is nondisplaced, capillary re-fill less than 3 second. Abdomen: Soft, round, no pulsatile masses, non-distended and mildly tender to suprapubic and lower mid abdominal region. No rebound, no guarding. No CVA tenderness, no hepatosplenomegaly. Bowel sounds present to all four quadrants. No high pitch or tinkling sounds, resonant to percussion. Extremities: No cyanosis, clubbing, or edema present. Pulses are palpable 2/2. Active ROM to all four extremities. Neuro: Alert and orientated x 4. PERRLA. Cranial nerves 2-12 intact without focal deficit. Skin: Warm, dry, and intact, without rash, erythema, or lesion. Lines: PIV Incisions: n/a Psych: pleasant, cooperative, normal speech, normal affect, no hallucinations, no dysarthria Objective Data Vital Signs Vital Signs: Vital Signs - 24 hr 04/09/23 15:25 04/09/23 19:18 04/09/23 20:18 Temperature 97.6 F Pulse Rate 66 72 Respiratory Rate 19 15 Blo
[2023-04-10] MEDS: CHOLECALCIFEROL 1,000 UNITS TABLET 2000 UNITS PO (08:36)
[2023-04-10] MEDS: MAGNESIUM OXIDE 200 MG TABLET PO (08:36)
[2023-04-10] MEDS: ASCORBIC ACID 500 MG TABLET 1000 MG PO ×2 (08:37→16:48)
[2023-04-10] MEDS: OPTI-GEN TAB 1 TABLET PO (08:37)
[2023-04-10] MEDS: VITAMIN E 400 UNIT CAPSULE PO (08:37)
[2023-04-10] MEDS: CALCIUM CARBONATE (OSCAL) 500 MG TABLET PO (08:37)
[2023-04-10] MEDS: methylPREDNISolone SOD SUCC 500 MG in DEXTROSE 5% 100 ML 200 MG IVPB ×2 (09:10→14:10)
[2023-04-10 11:57] LABS: Appearance Urine Cloudy (Clear); Bacteria Urine 4+ /hpf; Bilirubin Urine Negative (Negative); Blood Urine Negative (Negative); Color Urine Yellow (Yellow); Glucose Urine UA Negative (Negative); Ketones Urine Negative (Negative); Leukocyte Esterase Ur 3+ LEU/UL (Negative); Nitrate Urine Positive (Negative); Non Pathogenic Casts 0-2; Protein Urine Negative (Negative); Specific Grav Ur 1.015 (1.001-1.035); Squamous Epithelial Cell Urine None seen /hpf (Few); Urobilinogen Urine 0.2 mg/dL (<2.0); WBC Urine 21-50 /hpf; pH Urine 6.5 (5.0-9.0)
[2023-04-10 12:09] LABS: Add Urine Microscopic? YES
--- NOTE | 2023-04-10 12:38 | WPDNEURCNPN ---
Assessment and Plan Assessment and plan (1) Multiple sclerosis: Code(s): G35 - Multiple sclerosis Status: Acute (2) Left optic neuritis: Code(s): H46.9 - Unspecified optic neuritis Status: Acute Plan 1. History of demyelinating disease documented by all the studies in the past including spinal fluid studies 2. Recent increasing the visual difficulties with ongoing history of macular degeneration left optic nerve new enhancing lesion for which patient has been admitted for the high-dose IV Medrol treatment because of the increasing the visual difficulties superimposed on the macular degeneration. Treatment will be continued as such Consult date: 04/10/23 HPI: Irais Murphy is a 82 year old female Admitted to the hospital through the emergency room for the complaints of increasing visual difficulties in addition to the ongoing history of 1. Demyelinating disease for which she has never been treated 2. Macular degeneration. Her medications at the time of admissions included all the supplement and she is reportedly allergic to penicillins and amoxicillin. She does have ongoing history of documented multiple sclerosis evaluated by Dr. Barkley long time ago in [place] with the spinal fluid studies as well. Additionally she has history of multiple fractures. She is a never alcohol intake never substance user and her initial exam in the emergency room was grossly nonfocal her evaluation in the ER documented thrombocytopenia with platelets of 145, CBC with hemoglobin 11.8 and platelets 145 BMP with sodium 136 and she has been started on steroid treatment already. Her brain MRI on April 07, 2023 revealed new small left cerebellar white matter lesions in addition to pericallosal lesions of old nature and ring enhancing lesion along the left optic nerve. Orbital MRI again documented the left optic nerve lesion she was also documented to have new lesions on the cerebellum at the level of T7 he was found to have minimal syrinx and cervical spine was normal [facility] Past Medical History Medical History Allergies Arthritis Fracture of fifth metatarsal bone History of tibial fracture Ankle Levoscoliosis MS (multiple sclerosis) Nondisplaced fracture of right patella Osteoarthritis of both knees Overweight (04/21/16) Screening for osteoporosis Screening mammogram, encounter for Surgical History Surgical History History of ankle surgery History of appendectomy (~1961) History of elbow surgery x2 Bones History of surgery Excision of Cyst on Tongue Family History Family History Father Hypertension Cerebrovascular accident Patient's father is Mother Hypertension Family history of diabetes mellitus in first degree relative Family history of congestive heart failure Diabetes mellitus Sibling Family history of gastrointestinal disorder Family history of lung cancer Family history of heart disease in male family member before age 55 Patient's brother is Family history of cardiovascular disease Other Family history of malignant neoplasm of breast Social History Social History Smoking status: Never smoker Second hand tobacco smoke exposure: Yes Alcohol intake: never Substance use: never Substance use type: does not use Lack of Transportation: No Lack of Food: Never True Current Housing: I Have Housing Concerned About Future Housing: No Difficulty Paying Gas/Electric Bills: No Difficulty Paying for Meds: No Currently Unemployed: No Education: High School Diploma/GED Difficulty w/ Childcare or Family Care: No Living arrangements: with family Gender identity (if verbalized by the patient): Female Sandro
[2023-04-10 13:23] VITALS: BP 154/68; PULSE 97; RESP 18; TEMP 37.1; O2SAT 94
[2023-04-10 19:59] VITALS: BP 149/69; PULSE 82; RESP 16; TEMP 37; O2SAT 95
[2023-04-10 21:50] VITALS: O2SAT 95
[2023-04-11 05:42] LABS: Basophils Percent Auto 0.1 % (0.2-1.2); Hematocrit 34.5 % (37.0-47.0); Hemoglobin 11.4 g/dL (12.0-15.0); Immature Granulocyte Absolute 0.05 K/mm3 (0.00-0.031); Immature Granulocyte Percent A 0.4 % (0-0.5); Lymphocytes Absolute Auto 0.73 K/mm3 (0.9-3.2); Lymphocytes Percent Auto 6.2 % (18.3-44.2); Mean Corpuscular Hemoglobin 30.9 pg (26-34); Mean Corpuscular Volume 93.5 fl (80-100); Mean Platelet Volume 11.5 fl (7.4-10.4); Monocytes Absolute Auto 0.4 K/mm3 (0.1-0.6); Monocytes Percent Auto 3.7 % (2.6-8.5); Neutrophils Absolute Auto 10.5 K/mm3 (1.3-6.7); Neutrophils Percent Auto 89.6 % (45.5-73.1); Platelet Count Result 154 k/mm3 (150-375); Red Blood Count 3.69 M/mm3 (4.2-5.4); Red Cell Distribution Width 13.1 % (11.5-14.5); White Blood Count 11.8 K/mm3 (4.5-10.0)
[2023-04-11 06:00] VITALS: BP 127/62; PULSE 65; RESP 18; TEMP 36.6; O2SAT 95
[2023-04-11 06:03] LABS: Alanine Aminotransferase 19 U/L (6-35); Albumin Level 3.6 g/dL (3.5-5.1); Alkaline Phosphatase 34 U/L (38-126); Anion Gap 4 mmol/L (8-16); Aspartate Amino Transferase 22 U/L (14-36); Bilirubin,Total 0.4 mg/dL (0.2-1.3); Blood Urea Nitrogen 14 mg/dL (7-17); Calcium 8.9 mg/dL (8.4-10.2); Carbon Dioxide 27 mmol/L (22-30); Chloride 105 mmol/L (98-107); Estimated CRCL calculation 76 ml/min; Estimated Glomerular Filt Rate > 60; Glucose 132 mg/dL (65-110); Magnesium 2.1 mg/dL (1.6-2.3); Potassium 3.5 mmol/L (3.4-5.0); Sodium 136 mmol/L (137-145)
[2023-04-11] MEDS: CHOLECALCIFEROL 1,000 UNITS TABLET 2000 UNITS PO (08:25)
[2023-04-11] MEDS: VITAMIN E 400 UNIT CAPSULE PO (08:25)
[2023-04-11] MEDS: ASCORBIC ACID 500 MG TABLET 1000 MG PO ×2 (08:25→16:57)
[2023-04-11] MEDS: MAGNESIUM OXIDE 200 MG TABLET PO (08:25)
[2023-04-11] MEDS: CALCIUM CARBONATE (OSCAL) 500 MG TABLET PO (08:25)
[2023-04-11] MEDS: methylPREDNISolone SOD SUCC 1,000 MG in DEXTROSE 5% 100 ML 200 MG IVPB (08:25)
[2023-04-11] MEDS: OPTI-GEN TAB 1 TABLET PO (08:25)
--- NOTE | 2023-04-11 08:26 | PM.IMPN ---
Progress Note: A&P Assessment and Plan (1) Left optic neuritis: Code(s): H46.9 - Unspecified optic neuritis Status: Acute Assessment and Plan: Active MS flare seen on MRI. Direct admit by Dr Low Starting methylprednisone [address] Darnell through 04/12 Neurology following the case. Assistance in management is appreciated. WBC 4.0-->11.8 reactive from steroids Blood glucose stable on BMP 157, 132 (2) Multiple sclerosis: Code(s): G35 - Multiple sclerosis Status: Acute Assessment and Plan: see above (3) Suprapubic pain: Code(s): R10.2 - Pelvic and perineal pain Status: Acute Assessment and Plan: States this has been ongoing for the last few months. Last UTI was in 09/24 per our records. Per the patient she stopped taking her antibiotic because she did not like the way it made her feel. having suprapubic pain urinary frequency and hesitancy obtain U/a and reflex to culture. U/A + for UTI started on rocephin empirically Added Pyridium for pain Plan Feeding:Regular diet Analgesia: tylenol and Pyridium Thromboembolic prophylaxis: scd Ulcer prophylaxis: na Glycemic control: monitor on BMP Bowel regimen: na Lines: piv Antibiotics: rocephin High-dose steroids today and tomorrow, then reassess with Neurology Subjective Date/time seen: 04/11/23 08:26 Interval history: HPI obtained from chart, This is a very pleasant 82-year-old female with multiple sclerosis who presented to the ED for evaluation of decreased vision in left eye. The patient provides the following history. She was diagnosed with MS in 2000 though she was never treated with disease modifying therapies. Over the last year so she has developed a decrease in vision in the left eye which seems to be getting worse. She has occasional dysphagia but that is not a new finding. She had imaging done yesterday per Dr. Low and she was told to come to the ER for admission in order to receive IV steroids due to new enhancing lesion along the left optic nerve consistent with active MS. 04/10-extremely pleasant lady who says that she is just here for few steroids. She reports that she has of vision changes to her left eye. She says that she can see when looking at the television however when she is looking at her phone or trying to read the letters are blurry, malin and distorted. She has intermittent pain to her left eye as well. She also complains of some lower suprapubic and lower abdominal pain. She says that she recently was treated for UTI however she did not care for the antibiotic so she stopped taking it in hopes that the infection would resolve. That was back in September of this year and she says that her symptoms of lower abdominal pain, frequency, and hesitancy have continued. Will obtain urine specimen today check for UTI. 04/11-Mrs. Murphy is doing well this morning. She says she had difficult time sleeping last night. She just was not tired and cannot get sleep. Suspect this is related to her IV steroids. I did tell her that she does in fact have a UTI we started her on treatment for that. Is getting Pyridium for bladder anesthesia. She has no new questions or concerns. Review of Systems Review of Systems: All systems reviewed & are unremarkable except as noted in HPI and below Exam Narrative: General: well appearing, well developed, well nourished, appears stated age. HEENT: normocephalic, atraumatic. Mucous membranes moist. EOMI, PERRLA, bilateral sclera anicteric, no conjunctival injection. Neck supple without JVD, lymphadenopathy, or bruit. Respiratory: clear to auscultation bilaterally. No rales/rhonic/wheezes. Cardiovascular: Regular rate and rhythm, normal S1-S2 upon auscultation. No murmurs, rubs, or clicks. PMI is nondisplaced, capillary re-fill less than 3 second. Abdomen: Soft, round, no pulsatile masses, non-distended and mildly tender to suprapubic an
[2023-04-11 10:13] VITALS: O2SAT 96
[2023-04-11] MEDS: PHENAZOPYRIDINE HCL 100 MG TABLET 200 MG PO ×2 (11:37→16:57)
[2023-04-11 14:00] VITALS: BP 143/81; PULSE 79; RESP 18; TEMP 37.2; O2SAT 95
[2023-04-11 20:58] VITALS: BP 127/80; PULSE 66; RESP 20; TEMP 36.3; O2SAT 94
[2023-04-12 05:44] VITALS: BP 148/64; PULSE 66; RESP 18; TEMP 36.4; O2SAT 92
[2023-04-12 06:06] LABS: Basophils Percent Auto 0.1 % (0.2-1.2); Hematocrit 35.1 % (37.0-47.0); Hemoglobin 11.3 g/dL (12.0-15.0); Immature Granulocyte Absolute 0.06 K/mm3 (0.00-0.031); Immature Granulocyte Percent A 0.6 % (0-0.5); Immature Platelet Fraction Pct 7.3 % (0.9-11.2); Lymphocytes Absolute Auto 0.67 K/mm3 (0.9-3.2); Lymphocytes Percent Auto 7.1 % (18.3-44.2); Mean Corpuscular HGB Conc 32.2 g/dl (32-36); Mean Corpuscular Hemoglobin 30.4 pg (26-34); Mean Corpuscular Volume 94.4 fl (80-100); Mean Platelet Volume 11.8 fl (7.4-10.4); Monocytes Absolute Auto 0.5 K/mm3 (0.1-0.6); Monocytes Percent Auto 5.5 % (2.6-8.5); Neutrophils Absolute Auto 8.2 K/mm3 (1.3-6.7); Neutrophils Percent Auto 86.7 % (45.5-73.1); Platelet Count Result 134 k/mm3 (150-375); Red Blood Count 3.72 M/mm3 (4.2-5.4); Red Cell Distribution Width 13.2 % (11.5-14.5); White Blood Count 9.5 K/mm3 (4.5-10.0)
[2023-04-12 06:13] LABS: Alanine Aminotransferase 20 U/L (6-35); Albumin Level 3.4 g/dL (3.5-5.1); Alkaline Phosphatase 31 U/L (38-126); Anion Gap 4 mmol/L (8-16); Aspartate Amino Transferase 23 U/L (14-36); Bilirubin,Total 0.3 mg/dL (0.2-1.3); Blood Urea Nitrogen 19 mg/dL (7-17); Calcium 8.5 mg/dL (8.4-10.2); Carbon Dioxide 29 mmol/L (22-30); Chloride 105 mmol/L (98-107); Estimated CRCL calculation 78 ml/min; Estimated Glomerular Filt Rate > 60; Glucose 111 mg/dL (65-110); Magnesium 2.3 mg/dL (1.6-2.3); Potassium 3.4 mmol/L (3.4-5.0); Sodium 138 mmol/L (137-145)
--- NOTE | 2023-04-12 08:33 | PM.IMPN ---
Progress Note: A&P Assessment and Plan (1) Left optic neuritis: Code(s): H46.9 - Unspecified optic neuritis Status: Acute Assessment and Plan: 04/11/23 Active MS flare seen on MRI. Direct admit by Dr Low Starting methylprednisone [address] Darnell through 04/12 Neurology following the case. Assistance in management is appreciated. WBC 4.0-->11.8 reactive from steroids Blood glucose stable on BMP 157, 132 04/12/23 Patient finished methylprednisone, plan for prednisone taper per Neurology recommendation Neurology following Blood glucose is stable, trending 111-157 (2) Multiple sclerosis: Code(s): G35 - Multiple sclerosis Status: Acute Assessment and Plan: see above 04/12/23: Patient will benefit from an MS specialist on an outpatient basis per neurology recommendation. (3) Urinary tract infection: Code(s): N39.0 - Urinary tract infection, site not specified Status: Inactive Assessment and Plan: 04/11/23: States this has been ongoing for the last few months. Last UTI was in 09/24 per our records. Per the patient she stopped taking her antibiotic because she did not like the way it made her feel. having suprapubic pain urinary frequency and hesitancy obtain U/a and reflex to culture. U/A + for UTI started on Rocephin empirically Added Pyridium for pain 04/12/23: Urine culture positive for Klebsiella pneumoniae on final report, currently on Rocephin will switch to Cefdinir today after discussion with pharmacist on coverage options. Continue peridium for pain (4) Suprapubic pain: Code(s): R10.2 - Pelvic and perineal pain Status: Acute Assessment and Plan: See above Time Spent With Patient Time with patient: Greater than 35 minutes Subjective Date/time seen: 04/12/23 08:33 Interval history: HPI obtained from chart, This is a very pleasant 82-year-old female with multiple sclerosis who presented to the ED for evaluation of decreased vision in left eye. The patient provides the following history. She was diagnosed with MS in 2000 though she was never treated with disease modifying therapies. Over the last year so she has developed a decrease in vision in the left eye which seems to be getting worse. She has occasional dysphagia but that is not a new finding. She had imaging done yesterday per Dr. Low and she was told to come to the ER for admission in order to receive IV steroids due to new enhancing lesion along the left optic nerve consistent with active MS. 04/10-extremely pleasant lady who says that she is just here for few steroids. She reports that she has of vision changes to her left eye. She says that she can see when looking at the television however when she is looking at her phone or trying to read the letters are blurry, malin and distorted. She has intermittent pain to her left eye as well. She also complains of some lower suprapubic and lower abdominal pain. She says that she recently was treated for UTI however she did not care for the antibiotic so she stopped taking it in hopes that the infection would resolve. That was back in September of this year and she says that her symptoms of lower abdominal pain, frequency, and hesitancy have continued. Will obtain urine specimen today check for UTI. 04/11-Mrs. Murphy is doing well this morning. She says she had difficult time sleeping last night. She just was not tired and cannot get sleep. Suspect this is related to her IV steroids. I did tell her that she does in fact have a UTI we started her on treatment for that. Is getting Pyridium for bladder anesthesia. She has no new questions or concerns. 04/12: Patient is alert and oriented x3. She states that her vision is much better today. She is also being treated for a urinary tract infection this admission. Urine culture showing Klebsiella pneumoniae, antibiotic coverage discussed with pharmacist and we will switch f
[2023-04-12] MEDS: CALCIUM CARBONATE (OSCAL) 500 MG TABLET PO (08:44)
[2023-04-12] MEDS: PHENAZOPYRIDINE HCL 100 MG TABLET 200 MG PO ×3 (08:44→16:34)
[2023-04-12] MEDS: VITAMIN E 400 UNIT CAPSULE PO (08:44)
[2023-04-12 08:45] VITALS: RESP 18; O2SAT 92
[2023-04-12] MEDS: ASCORBIC ACID 500 MG TABLET 1000 MG PO ×2 (08:45→16:34)
[2023-04-12] MEDS: CHOLECALCIFEROL 1,000 UNITS TABLET 2000 UNITS PO (08:45)
[2023-04-12] MEDS: MAGNESIUM OXIDE 200 MG TABLET PO (08:45)
[2023-04-12] MEDS: OPTI-GEN TAB 1 TABLET PO (08:45)
[2023-04-12] MEDS: methylPREDNISolone SOD SUCC 1,000 MG in DEXTROSE 5% 100 ML 200 MG IVPB (08:55)
--- NOTE | 2023-04-12 11:49 | WPDNEUROPN ---
Progress Note: A&P Assessment and Plan (1) Multiple sclerosis: Code(s): G35 - Multiple sclerosis Status: Acute (2) Left optic neuritis: Code(s): H46.9 - Unspecified optic neuritis Status: Acute Plan Ms. Murphy is an 82 year old female with a history of MS, not on any therapies. She had concerns regarding her vision worsening over time, she does have a history of macular degeneration in both eyes. MRI orbit was revealing for active left optic neuritis. Currently admitted receiving high dose steroids. Vision has improved since admission, patient tolerating medication well. - Continue Solumedrol 500mg BID for full course of five days -- followed by prednisone taper: 60mg/d x 4 days, 40mg/d x 4 days, 20mg/d for 4 days. - I discussed with patient that given her age, it will probably be best for her to follow-up with an MS specialist moving forwards, we will help coordinate that once she is discharged - UTI treatment per hospitalists Subjective Date/time seen: 04/12/23 11:49 Interval history: Ms. Barron is an 82 year old female with a history of MS. She was diagnosed with [place] [address] Renato Barkley. She never took any disease modifying therapies. Patient has macular degeneration and it is getting worse. She sees orange specks in the left eye. 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 Patient reports that she had chronic trouble swallowing. She denies any focal numbness/weakness as attacks. The dysphagia is what caused her to be diagnosed with MS. She has been more clumsy in the past year and has fallen a few times. The falling occurs mostly because of her dizziness and because of her vision. No color blindness and no painful vision loss. She has not had a swallow study for two years. She has not seen speech therapy. She had an MRI done of her brain and orbit last week that showed active left optic neuritis. She was admitted for IV steroids. She has received three days of steroids so far. She feels that her vision has improved since admission. She was also diagnosed with UTI for which she is currently being treated. Patient has never been on any disease modifying agents in the past for her MS. Review of Systems Constitutional: Constitutional: Denies chills, Denies fever(s) and Denies weight loss Eyes: Eyes: Denies diplopia and Denies loss of vision Comments: chronic vision loss ENT: Denies dizziness, Denies hearing loss and Denies tinnitus Cardiovascular: Cardiovascular: Denies chest pain, Denies syncope and Denies dyspnea Respiratory: Respiratory: Denies cough, Denies dyspnea and Denies wheezing Gastrointestinal: Gastrointestinal: Denies abdominal pain, Denies change in bowel habits and Denies vomiting Genitourinary: Genitourinary: Denies urinary incontinence Musculoskeletal: Musculoskeletal: Denies arthralgias and Denies joint swelling Integumentary/Breasts: Skin/Breast: Denies new lesions and Denies rash Neurologic: Reports as per HPI, Denies dizziness, Denies syncope and Denies loss of vision Psychiatric: Psychiatric: Denies anxiety and Denies depression Endocrine: Endocrine: Denies cold intolerance and Denies heat intolerance Hematologic/Lymphatic: Hematologic/Lymphatic: Denies easy bleeding and Denies easy bruising Allergic/Immunologic: Allergic/Immunologic: Denies no additional allergic/immunologic complaints and Denies wheezing Exam Const: General: comfortable and no acute distress HENMT: Mouth: Yes moist mucous membranes Eyes: Pupils: Equal, round and reactive pupils present EOM: EOMs intact bilaterally Resp: Effort & Inspection: normal respiratory effort Skin: General skin exam: normal color Neuro: Other: Pupils equal and reactive bilaterally, EOMI, face symmetric, facial sensation intact, tongue protrudes midline, palate midline. Shoulder shrug normal. Strength 5/5 throughout. Sensation intact throughout. FNF normal bilaterally. Language comprehension and fluenc
[2023-04-12 14:18] VITALS: BP 140/70; PULSE 60; RESP 17; TEMP 36.8; O2SAT 93
[2023-04-12 20:28] VITALS: BP 137/74; PULSE 74; RESP 18; TEMP 36.4; O2SAT 93
[2023-04-13 04:14] VITALS: BP 147/89; PULSE 63; RESP 18; TEMP 36.3; O2SAT 95
[2023-04-13 05:56] LABS: Basophils Percent Auto 0.1 % (0.2-1.2); Hematocrit 35.1 % (37.0-47.0); Hemoglobin 11.3 g/dL (12.0-15.0); Immature Granulocyte Absolute 0.04 K/mm3 (0.00-0.031); Immature Granulocyte Percent A 0.6 % (0-0.5); Immature Platelet Fraction Pct 7.7 % (0.9-11.2); Lymphocytes Absolute Auto 0.71 K/mm3 (0.9-3.2); Lymphocytes Percent Auto 10.6 % (18.3-44.2); Mean Corpuscular HGB Conc 32.2 g/dl (32-36); Mean Corpuscular Hemoglobin 30.5 pg (26-34); Mean Corpuscular Volume 94.6 fl (80-100); Mean Platelet Volume 11.6 fl (7.4-10.4); Monocytes Absolute Auto 0.4 K/mm3 (0.1-0.6); Monocytes Percent Auto 6.3 % (2.6-8.5); Neutrophils Absolute Auto 5.5 K/mm3 (1.3-6.7); Neutrophils Percent Auto 82.4 % (45.5-73.1); Platelet Count Result 128 k/mm3 (150-375); Red Blood Count 3.71 M/mm3 (4.2-5.4); Red Cell Distribution Width 13.1 % (11.5-14.5); White Blood Count 6.7 K/mm3 (4.5-10.0)
[2023-04-13 06:12] LABS: Anion Gap 4 mmol/L (8-16); Blood Urea Nitrogen 17 mg/dL (7-17); Calcium 8.4 mg/dL (8.4-10.2); Carbon Dioxide 28 mmol/L (22-30); Chloride 105 mmol/L (98-107); Estimated CRCL calculation 78 ml/min; Estimated Glomerular Filt Rate > 60; Glucose 104 mg/dL (65-110); Potassium 3.7 mmol/L (3.4-5.0); Sodium 137 mmol/L (137-145)
[2023-04-13] MEDS: PHENAZOPYRIDINE HCL 100 MG TABLET 200 MG PO ×3 (10:53→18:55)
[2023-04-13] MEDS: ASCORBIC ACID 500 MG TABLET 1000 MG PO ×2 (10:54→17:45)
[2023-04-13] MEDS: CEFDINIR 300 MG CAPSULE PO (10:54)
[2023-04-13] MEDS: CHOLECALCIFEROL 1,000 UNITS TABLET 2000 UNITS PO (10:54)
[2023-04-13] MEDS: MAGNESIUM OXIDE 200 MG TABLET PO (10:54)
[2023-04-13] MEDS: CALCIUM CARBONATE (OSCAL) 500 MG TABLET PO (10:54)
[2023-04-13] MEDS: OPTI-GEN TAB 1 TABLET PO (10:54)
[2023-04-13] MEDS: VITAMIN E 400 UNIT CAPSULE PO (10:54)
[2023-04-13 14:37] VITALS: BP 137/60; PULSE 59; RESP 16; TEMP 36.7; O2SAT 91
--- NOTE | 2023-04-13 17:10 | PM.DS ---
DS: Admitting Diagnosis Discharge Date 04/13/23 Admitting Diagnosis Left optic neuritis Multiple sclerosis DS: Discharge Diagnosis Discharge Diagnosis (1) Left optic neuritis: Code(s): H46.9 - Unspecified optic neuritis Status: Acute (2) Multiple sclerosis: Code(s): G35 - Multiple sclerosis Status: Acute (3) Urinary tract infection: Code(s): N39.0 - Urinary tract infection, site not specified Status: Inactive (4) Suprapubic pain: Code(s): R10.2 - Pelvic and perineal pain Status: Acute DS: Summary Hospital Course Reason for hospitalization: Optic neuritis and UTI Hospital Course: This is an 82-year-old female with a significant past medical history of multiple sclerosis who presented to the emergency room for evaluation of decreased vision in the left eye on 04/09/2023. Patient states that she has had MS since 2000. Over the last year she developed a decrease in vision in the left eye which seem to be getting worse. She had imaging done per Dr. Low and was told to present to the ER for IV steroids due to new enhancing lesion along the left optic nerve consistent with active MS. Patient was given high-dose steroids for the past 5 days with improvement in her vision. She was also found to have a urinary tract infection with Klebsiella pneumoniae. She was put on Rocephin IV until sensitivities came back and now she has been transitioned to cefdinir while inpatient. We will send her home with another 7 day course of cefdinir and she will need to follow up with her primary care physician for her UTI. Order placed for prednisone taper for the next [address] Low. She will follow-up in [address] Low as well. She would also need to look into getting an MS specialist that deals with these types of problems. Patient has no new complaints on exam today. She is ready for discharge. Status at Discharge Cognitive/behavioral status at discharge: Alert and oriented x3 Functional status at discharge: independent ambulation Overall status at discharge: patient is progressing back to baseline Time Spent with Patient Time attestation: Total time spent providing and/or coordinating discharge services: Time spent: Greater than 30 minutes Exam Narrative: General: well appearing, well developed, well nourished, appears stated age. HEENT: normocephalic, atraumatic. Mucous membranes moist.PERRLA, no conjunctival injection. Neck: supple without JVD, lymphadenopathy, or bruit. Trachea midline Respiratory: Lungs clear to auscultation bilaterally. No adventitious lung sounds. Cardiovascular: Regular rate and rhythm, normal S1-S2 upon auscultation. No murmurs noted. Abdomen: Soft, round,non-distended. She remains mildly tender to suprapubic and lower mid abdominal region however she is on Pyridium. No rebound, no guarding. Bowel sounds present to all four quadrants and normoactive. Extremities: No cyanosis, clubbing, or edema present. Pulses are palpable 2/2. Active ROM to all four extremities. Neuro: Alert and orientated x 4. PERRLA. No focal deficit. Skin: Warm, dry, and intact, without rash, erythema, or lesion. Psych: pleasant, cooperative, normal speech, normal affect. DS: Data Data Completed and Pending Completed studies during hospitalization: Brain MRI Orbits/face/neck MRI Thoracic spine MRI Cervical spine MRI Pending studies at discharge: None Labs on day of discharge: Labs from last 24 hours 04/13/23 05:16 WBC 6.7 RBC 3.71 L Hgb 11.3 L Hct 35.1 L MCV 94.6 MCH 30.5 MCHC 32.2 RDW 13.1 Plt Count 128 L MPV 11.6 H Immature Gran % (Auto) 0.6 H Neut % (Auto) 82.4 H Lymph % (Auto) 10.6 L [place] % (Auto) 6.3 Eos % (Auto) 0.0 Baso % (Auto) 0.1 L Lymph # (Auto) 0.71 L [place] # (Auto) 0.4 Eos # (Auto) 0.0 Baso # (Auto) 0.0 Abs Immat Gran (auto) 0.04 H Absolute Neuts (auto) 5.5 Absolute Nucleated RBC 0.0 Nucleated RBC %
[2023-04-13] MEDS: methylPREDNISolone SOD SUCC 500 MG in DEXTROSE 5% 100 ML 200 MG IVPB (18:04)
== END 2023-04-13 19:15 | disposition home or self-care (01) | DRG 59 ==
LOC: ANHED 15:51 → ANH3MEDSUR 19:00 → ANH2MED 19:17
PROVIDERS: Nurse Practitioner Acute Care; Physician Assistant; Admitting Provider Student in an Organized Health Care Education/Training Program; Emergency Provider Preventive Medicine Aerospace Medicine; PCP Nurse Practitioner Family; Visit Provider Nurse Practitioner Acute Care
DX: G35 Multiple sclerosis (principal); H46.8 Other optic neuritis; N39.0 Urinary tract infection, site not specified; R10.2 Pelvic and perineal pain; B96.1 Klebsiella pneumoniae [K. pneumoniae] as the cause of diseases classified elsewhere; H35.3290 Exudative age-related macular degeneration, unspecified eye, stage unspecified; M19.90 Unspecified osteoarthritis, unspecified site; M17.0 Bilateral primary osteoarthritis of knee; R13.19 Other dysphagia; Z90.49 Acquired absence of other specified parts of digestive tract
CPT/HCPCS: 36415; 70543; 70553; 72156; 72157; 80048; 80053; 81001; 82607; 83735; 84443; 85025; 85055; 85652; 86140; 87077; 87086; 87186; 96365; 99285; A9270; A9577; G0378; J0696; J2930

== ENCOUNTER 2023-09-22 12:30 | Outpatient (CLI) | payer OTHER, SELFPAY ==
--- NOTE | ~2023-09-22 | MR_ITS ---
MRI of the cervical spine Clinical History: Multiple sclerosis Technique: Axial T2-weighted and gradient images, and sagittal T1-weighted, T2-weighted, and STIR nidhi ges were acquired. Following intravenous administration of 11 cc MultiHance gadolinium, T1-weighted f at-sat imaging was performed in the axial and sagittal planes. COMPARISON: 04/07/2023 Findings: No acute fracture identified. Stable minimal grade 1 anterolisthesis of C4 over C5. Osseous alignment is unchanged. No suspicious bone marrow signal abnormality seen. At C2-C3, there is no disc bulge or herniation. No spinal canal stenosis, cord compression, or neural foraminal narrowing. At C3-C4, there is tiny disc osteophyte complex. There is probable right neural foraminal narrowing w ith bilateral facet arthropathy, right worse than left. No central canal stenosis or cord compression . At C4-C5, there is minimal disc ossify complex and bilateral facet arthropathy. No central canal sten osis, cord compression, or definite neural foraminal narrowing. At C5-C6, there is advanced degenerative disc narrowing. There is minimal disc ossify complex with bi lateral facet arthropathy. There is right neural foraminal narrowing. No definite left neural foramin al narrowing. No central canal stenosis or cord compression. At C6-C7, there is advanced degenerative distended with minimal disc ossify complex and minimal facet arthropathy. Probable minimal bilateral neural foraminal narrowing. No central canal stenosis or cor d compression. No definite abnormal signal seen in the spinal cord. Paravertebral soft tissues are unremarkable. No abnormal postcontrast enhancement identified. Impression: Mild degenerative spondylosis, similar to prior exam. No definite abnormal signal seen in the spinal cord. Reviewed, dictated and finalized at [facility]. Impression: Mild degenerative spondylosis, similar to prior exam. No definite abnormal signal seen in the spinal cord.
--- NOTE | ~2023-09-22 | MR_ITS ---
EXAMINATION: MR brain/brain stem wo/w con, MR orbits face neck wo/w con DATE: 09/22/2023 15:13 INDICATION: Multiple sclerosis with worsening vision TECHNIQUE: 1. Magnetic resonance imaging (MRI) of the brain and brainstem was performed without and with 11 mL M ultihance intravenous contrast. Sequences included sagittal and axial T1-weighted FLAIR, axial T1-gifty ghted FSE, axial diffusion-weighted FS EPI, sagittal T2-weighted FLAIR, axial T2*-weighted GRE, axial T2-weighted FLAIR Propeller, and axial T2-weighted Propeller. Postcontrast sequences included axial, coronal, and sagittal T1-weighted FSE. Apparent diffusion coefficient (ADC) maps were created. 2. MRI of the face and orbits was performed without and with 11 mL MultiHance intravenous contrast ut ilizing the same contrast bolus. Sequences included small [id number] sequences of the orbits inclu ded coronal and axial T2-weighted FS FSE, T1-weighted FSE and postcontrast T1-weighted FS FSE. COMPARISON: None. FINDINGS: There are no areas of restricted diffusion to suggest acute infarction. No intracranial hemorrhage or abnormal intracranial mass lesion. The ventricles are symmetric and normal in size. There are no abn ormal extra-axial fluid collections. Flow voids are seen in the cerebral arteries on the T2-weighted sequences consistent with their expected patency. Changes of bilateral intraocular lens replacement. Mild mucosal thickening the bilateral ethmoid sinuses. No significant interval change in numerous bilateral T2 hyperintense lesions which are primarily juxt acortical and periventricular, the latter with typical radiating pericallosal pattern consistent with provided history of multiple sclerosis and which have become essentially confluent precluding discre te numerical quantitation. A previously suspected new lesion at the left cerebellar hemisphere identi fied only on the sagittal imaging is not identified on the current study and may have been artifactua l. A few of the larger lesions demonstrate corresponding decreased T1 signal. None of the intracrania l lesions demonstrate contrast enhancement. The bilateral optic nerves appear normal on the current s tudy with no expansion, abnormal T2 signal or enhancement. IMPRESSION: 1. No significant interval change in moderate amount of cerebral white matter T2 hyperintensity many of which have become essentially confluent in the periventricular/pericallosal region with typical ap pearance for provided history of multiple sclerosis. No new or enhancing lesions identified. 2. Bilateral optic nerve canal now appear normal with no abnormal T2 hyperintense or enhancing lesion s identified. Reviewed, dictated and finalized at location A. IMPRESSION: 1. No significant interval change in moderate amount of cerebral white matter T 2 hyperintensity many of which have become essentially confluent in the periven tricular/pericallosal region with typical appearance for provided history of mu ltiple sclerosis. No new or enhancing lesions identified. 2. Bilateral optic nerve canal now appear normal with no abnormal T2 hyperinten se or enhancing lesions identified.
--- NOTE | ~2023-09-22 | MR_ITS ---
MRI of the thoracic spine Clinical History: Multiple sclerosis Technique: Axial T2-weighted and gradient images, and sagittal T1-weighted, T2-weighted, and STIR nidhi ges were acquired. Following intravenous administration of 11 cc MultiHance gadolinium, T1-weighted f at-sat imaging was performed in the axial and sagittal planes. COMPARISON: 04/07/2023 Findings: No fracture or subluxation of thoracic spine identified. Vertebral body maintain stable ali gnment. There are mild reactive marrow signal changes due to degenerative disc narrowing at multiple levels. No suspicious bone marrow signal reality seen. Disc osteophyte complex and focal disc extrusion centrally is again present at T7-T8, with mild alejandra ening/compression of the ventral cord. There is stable minimal syrinx just superior to this, at the T 7 level. No other abnormal signal seen in the spinal cord otherwise. No other significant disc bulge or herniation seen. No other spinal canal stenosis or cord compression. Paravertebral soft tissues are unremarkable. No suspicious postcontrast enhancement. Impression: Disc osteophyte complex and focal disc extrusion at T7-T8 with mild flattening/compression of the marcie tral cord, similar to minimally worsened from prior exam. Stable minimal syrinx at the T7 level, just above the area of cord compression. Reviewed, dictated and finalized at [facility]. Impression: Disc osteophyte complex and focal disc extrusion at T7-T8 with mild flattening/ compression of the ventral cord, similar to minimally worsened from prior exam. Stable minimal syrinx at the T7 level, just above the area of cord compression.
== END 2023-09-22 12:31 | disposition home or self-care (01) ==
PROVIDERS: PCP Nurse Practitioner Family; Visit Provider Student in an Organized Health Care Education/Training Program
DX: G35 Multiple sclerosis (principal); M47.892 Other spondylosis, cervical region; M25.78 Osteophyte, vertebrae; G95.29 Other cord compression
CPT/HCPCS: 70543; 70553; 72156; 72157; A9577

== ENCOUNTER 2023-10-18 23:09 | Emergency (ER) | payer OTHER, SELFPAY ==
--- NOTE | ~2023-10-18 | XR_ITS ---
AP and oblique views of the right ribs Clinical History: Pain Findings: No rib fracture is seen. Osseous alignment is anatomic. Probable biapical scarring. Lungs a re otherwise clear, without focal consolidation or pleural effusion. Cardiomediastinal contour is wit hin normal limits. Soft tissues are unremarkable. Impression: No rib fracture is seen. Reviewed, dictated and finalized at location . Impression: No rib fracture is seen.
--- NOTE | ~2023-10-18 | XR_ITS ---
EXAMINATION: XR hand RT min 3V DATE: 10/18/2023 23:34 INDICATION: Right hand injury. TECHNIQUE: 3 views of right hand were obtained. COMPARISON: None. FINDINGS: Bone alignment is normal. There is an oblique fracture of diaphysis of fourth metacarpal. T he distal fracture fragment demonstrates 1 mm dorsal ulnar displacement. There is mild osteoarthritis of triscaphe joint and severe osteoarthritis of first carpometacarpal joint. There is moderate osteo arthritis of first-third metacarpophalangeal joints. There is osteoarthritis of all of the interphala ngeal joints, severe at first interphalangeal joint and second and third distal interphalangeal joint s. IMPRESSION: 1. Oblique fracture of diaphysis of fourth metacarpal. Reviewed, dictated and finalized at location E.
--- NOTE | ~2023-10-18 | XR_ITS ---
AP and lateral views of the right scapula Clinical history: Pain FINDINGS: No acute fracture or dislocation seen. Visualized joint spaces are intact. Soft tissues are unremarkable. IMPRESSION: No significant abnormality seen. Reviewed, dictated and finalized at location M.
[2023-10-18 23:11] VITALS: BP 163/86; PULSE 80; RESP 17; TEMP 36.8; O2SAT 95
--- NOTE | 2023-10-19 01:16 | ED.UPPEXIN ---
HPI - Extremity Injury (Upper) General Chief Complaint: Extremity Injury, Upper <Gerda Bhatia PA-C - Last Filed: 10/19/23 03:56> Stated Complaint: FALL/R HAND PAIN <Gerda Bhatia PA-C - Last Filed: 10/19/23 03:56> Time Seen by Provider: 10/19/23 01:06 <Gerda Bhatia PA-C - Last Filed: 10/19/23 03:56> History of Present Illness HPI narrative: 83-year-old female presents to emergency department for right hand pain after mechanical injury that occurred today. Patient states she has 5 dogs and they were all running around her feet. States she was trying to avoid stepping on the dogs and she tripped, began to fall and grabbed the counter or with her hands out to catch herself. States her right 4th digit hyper extended and she is having pain to the dorsum of her hand. She is also reporting pain to her right shoulder blade. Denies hitting her head, loss of consciousness, neck pain or back pain, other injuries acquired. <Gerda Bhatia PA-C - Last Filed: 10/19/23 03:56> Related Data Home Medications: Home Medications Medication Instructions Recorded Confirmed calcium carbonate (Calcium 600) 600 mg PO DAILY 02/23/20 04/09/23 magnesium 250 mg tablet 250 mg PO DAILY 02/23/20 04/09/23 ascorbate calcium (vitamin C) 500 1 g PO BID 11/25/20 04/09/23 mg tablet vitamin E 200 unit capsule 400 unit PO DAILY 11/25/20 04/09/23 aflibercept 2 mg/0.05 mL 2 mg intravitreal ONCE 11/06/21 04/09/23 intravitreal solution for injection (Eylea) cholecalciferol (vitamin D3) 50 50 mcg PO DAILY 08/25/22 04/09/23 mcg (2,000 unit) tablet amino acid-hydrolyzed 1 ea PO DAILY 03/11/23 04/09/23 collagen-whey 15 gram-100 kcal/30 mL oral liquid vit C 250 mg-vit E 90 mg-zinc 40 1 tablet PO BID 03/18/23 04/09/23 mg-copper 1 [id number] capsule (PreserVision AREDS-2) <Gerda Bhatia PA-C - Last Filed: 10/19/23 03:56> Allergies/Adverse Reactions: Allergies Allergy/AdvReac Type Severity Reaction Status Date / Time amoxicillin Allergy Unknown Hives / Verified 10/19/23 00:42 Red Face Penicillins Allergy Unknown Hives Verified 10/19/23 00:42 <Gerda Bhatia PA-C - Last Filed: 10/19/23 03:56> Review of Systems Review of Systems: CONSTITUTIONAL: Denies fever, chills, or sweats. EYES: Denies visual changes, redness, or discharge. ENT: Denies rhinorrhea, congestion, sore throat, or otalgia. CARDIOVASCULAR: Denies chest pain, palpitations, or edema. RESPIRATORY: Denies cough or dyspnea. GASTROINTESTINAL: Denies abdominal pain, nausea, vomiting, or diarrhea. GENITOURINARY: Denies dysuria or hematuria. SKIN: Denies rash or itching. MUSCULOSKELETAL: See HPI NEUROLOGIC: Denies headache, numbness, or weakness. PSYCHIATRIC: Denies anxiety or depression. <Gerda Bhatia PA-C - Last Filed: 10/19/23 03:56> [facility], [facility] Past Medical History Medical History: Medical History Allergies Arthritis Multiple sclerosis Osteoarthritis of both knees <Gerda Bhatia PA-C - Last Filed: 10/19/23 03:56> Surgical History Surgical History: Surgical History History of ankle surgery History of appendectomy (1961) History of elbow surgery <Gerda Bhatia PA-C - Last Filed: 10/19/23 03:56> Family History Family History: Family History Father Hypertension Cerebrovascular accident Patient's father is Mother Hypertension Family history of diabetes mellitus in first degree relative Family history of congestive heart failure Diabetes mellitus Sibling Family history of gastrointestinal disorder Family history of lung cancer Family history of heart disease in male family member before age 55 Patient's brother is Family history of cardiovascular
[2023-10-19] MEDS: ACETAMINOPHEN 325 MG TABLET 650 MG PO (01:52)
== END 2023-10-19 02:47 | disposition home or self-care (01) ==
PROVIDERS: Emergency Provider Physician Assistant; PCP Nurse Practitioner Family
DX: S62.304A Unspecified fracture of fourth metacarpal bone, right hand, initial encounter for closed fracture (principal); G35 Multiple sclerosis; M17.0 Bilateral primary osteoarthritis of knee; W01.0XXA Fall on same level from slipping, tripping and stumbling without subsequent striking against object, initial encounter
CPT/HCPCS: 29125; 71101; 73010; 73130; 99284; A4565; A9270

== ENCOUNTER 2023-12-07 08:37 | Outpatient (CLI) | payer OTHER, SELFPAY ==
--- NOTE | ~2023-12-07 | XR_ITS ---
Right Hand Technique: PA, oblique, and lateral views were obtained. Clinical History: Fourth metacarpal fracture COMPARISON: 10/18/2023 Findings: Routine interval healing of the fourth metacarpal oblique shaft fracture is present, with c allus formation bridging across the fracture site. Generalized osteopenia noted. Scattered degenerati ve changes are present, stable from prior exam, involving the DIP joints, interphalangeal joint of th e thumb, and first CMC joint.. Joint spaces are preserved. Soft tissues are unremarkable. Impression: Healing subacute fracture of the fourth metacarpal shaft. Generalized osteopenia. Scattered degenerative changes, as above. Reviewed, dictated and finalized at location M. Impression: Healing subacute fracture of the fourth metacarpal shaft. Generalized osteopenia. Scattered degenerative changes, as above.
== END 2023-12-07 08:38 | disposition home or self-care (01) ==
LOC: ANHIMG 08:41
PROVIDERS: PCP Nurse Practitioner Family; Visit Provider Plastic Surgery
DX: S62.304D Unspecified fracture of fourth metacarpal bone, right hand, subsequent encounter for fracture with routine healing (principal); M85.89 Other specified disorders of bone density and structure, multiple sites
CPT/HCPCS: 73130

== ENCOUNTER 2024-01-17 08:45 | Outpatient (RCR) | payer OTHER, SELFPAY ==
--- NOTE | 2023-12-20 09:51 | OTOPEVAL1 ---
Assessment and note entered by JALEEL Buckley/Connie, CHT Evaluation Information Assessment Status Evaluation Diagnosis Nondisplaced fracture of shaft of 4th metacarpal bone, right hand Subjective Information Patient was carrying a crate of dog food when she fell and injured her hand. She did not have surgery. She wore an immobilizer x6 weeks and is referred to therapy for residual stiffness and weakness. She is left handed. Reported Pain Level Pain Score 0: Self Report Additional Pain Score Comments Patient reports no pain at rest. She states the fracture site is not painful. Reporting pain in her arthritic PIP/DIP joints with ROM. Assessment OT Clinical Summary Patient referred to OT with residual right hand stiffness and weakness following right 4th metacarpal shaft fracture. Skilled OT indicated for use of thermal modalities, therapeutic exercise, and HEP instruction and progression to facilitate optimal functional use of her right hand. Plan of Care Interventions Therapeutic Exercise,Therapeutic Activities, Paraffin OT Services Indicated Yes Treatment Frequency and 1x/week for 5 visits Duration These treatments will address the objective and functional deficits as defined above. The patient will be advanced safely and appropriately in order for the patient to progress towards his/her prior level of function. Additional exercises will be introduced and as well as a comprehensive home exercise program upon discharge, if needed, ?to ensure carryover of functional gains achieved in the clinic. This treatment plan has been reviewed and agreement upon by the patient.
--- NOTE | 2023-12-20 09:51 | OPREHPOC ---
Outpatient Therapy Plan of Care This is a Multidisciplinary Plan of Care that may contain components documented by all disciplines (PT, OT, and ST.) OT Problem 1 OT Problem #1 Knowledge Deficit OT Goal 1 Goal 1. Patient to be independent with HEP. Target Visit 5 OT Problem 2 OT Problem #2 Impaired Range of Motion OT Goal 1 Goal 1. Patient to increase right ring finger ROM as demonstrated by being able to make a hook fist with 1 cm or less gap between the finger tips and the DPC. Target Visit 5 OT Problem 3 OT Problem #3 Impaired Strength OT Goal 1 Goal 1. 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 Target Visit 5
--- NOTE | 2024-01-10 07:57 | PCOTNOTE ---
Patient missed scheduled appointment time. Called patient and her daughter answered the phone. They had the scheduled time mixed up. Re-scheduled for tomorrow at 7:30.
--- NOTE | 2024-01-17 09:31 | OTOPDC ---
Assessment and note entered by Tyshawn Acosta, OTR/L, CHT D/C Summary 01/17/24 Diagnosis Nondisplaced fracture of shaft of 4th metacarpal bone, right hand Subjective Information Patient reports she has made progress since the start of care. She reports her ROM has improved and her stiffness has reduced. She reports she has no functional limitations, she has been sweeping and mopping without difficulty. 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 Reported Pain Level Pain Score 0: Self Report Assessment OT Clinical Summary Patient referred to OT with residual right hand stiffness and weakness following right 4th metacarpal shaft fracture. Patient has made excellent progress with therapy. ROM and strength have improved to functional limits. She no longer reports any functional limitations with the right hand. D/C OT with HEP. Plan of Care OT Services Indicated No
== END 2024-01-17 11:31 | disposition home or self-care (01) ==
LOC: ANHOT 08:45
PROVIDERS: PCP Nurse Practitioner Family; Visit Provider Plastic Surgery
DX: S62.354D Nondisplaced fracture of shaft of fourth metacarpal bone, right hand, subsequent encounter for fracture with routine healing (principal)
CPT/HCPCS: 97018; 97110; 97165; 97530

== ENCOUNTER 2024-02-03 12:24 | Outpatient (CLI) | payer OTHER, SELFPAY ==
--- NOTE | ~2024-02-03 | MR_ITS ---
EXAMINATION: MR orbits face neck wo/w con DATE: 02/03/2024 14:28 INDICATION: Multiple sclerosis. Worsening vision. TECHNIQUE: Magnetic resonance imaging (MRI) of the orbits was performed without and with 10 mL MultiH ance intravenous contrast. COMPARISON: Orbit MRI 09/22/2023 FINDINGS: The extraocular muscles and optic nerves are normal. There are likely changes of ocular monty s replacement surgeries. There is no abnormal orbital mass. There is mucosal thickening in the parana nico sinuses. IMPRESSION: 1. Normal optic nerves. Reviewed, dictated and finalized at location A. IMPRESSION: 1. Normal optic nerves.
--- NOTE | ~2024-02-03 | MR_ITS ---
MR cervical spine wo/w con Ordering provider: Elissa Low MD History: . h/o MS, surveillance imaging . Comparison: None. Technique: MRI cervical spine with and without contrast enhancement. 10 mL MultiHance were injected I V. FINDINGS: CERVICAL SPINAL CORD/CRANIAL CERVICAL JUNCTION: Normal in signal and caliber. No abnormal enhancement . CERVICAL VERTEBRAL BODIES: Minimal anterolisthesis at the level of C5-C6. Minimal retrolisthesis at t he level of C6-C7. Otherwise, Normal height and alignment. Normal marrow signal. No abnormal marrow e nhancement. DISK SPACES: Narrowing of the disc C5-C6 and C6-C7. Multilevel facet joint disease. C2-C3: No stenosis. C3-C4: No stenosis. C4-C5: No stenosis. Osteophytes with bilateral narrowing of the foramina. Bilateral root compression. C5-C6: No stenosis. Mild disc bulge with osteophytes and narrowing of the foramina bilaterally. Bilat eral root compression. C6-C7: No stenosis. Disc bulge with osteophytes. Narrowing of the left intervertebral foramen with ro ot compression. C7-T1: No stenosis. VISUALIZED PARASPINOUS SOFT TISSUES: Normal. No abnormal enhancement. IMPRESSION: No acute osseous abnormality. Multilevel degenerative disc disease. No enhancing lesion seen. Reviewed, dictated and finalized at location A.
--- NOTE | ~2024-02-03 | MR_ITS ---
EXAMINATION: MR thoracic spine wo/w con DATE: 02/03/2024 14:30 INDICATION: Multiple sclerosis. TECHNIQUE: Magnetic resonance imaging (MRI) of the thoracic spine was performed without and with 10 m L MultiHance intravenous contrast. COMPARISON: Thoracic spine MRI 09/22/2023 FINDINGS: There is 11 degrees dextroscoliosis of thoracic spine and 16 degrees levoscoliosis of thora columbar spine. Vertebral body heights are normal. There is mild to moderately decreased disc height from T5-T6 through T9-T10. At T7-T8, there is a central extrusion with mild central canal stenosis an d ventral indentation of the spinal cord. 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 There is multilevel facet joint osteoarthritis, severe at many levels. There is mild ne ural foraminal stenosis at a few levels on either side. IMPRESSION: 1. Stable moderate thoracic spondylosis. 2. 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 Reviewed, dictated and finalized at location A.
--- NOTE | ~2024-02-03 | MR_ITS ---
EXAMINATION: MR brain/brain stem wo/w con DATE: 02/03/2024 14:28 INDICATION: Multiple sclerosis. Worsening vision. TECHNIQUE: Magnetic resonance imaging (MRI) of the brain and brainstem was performed without and with 10 mL MultiHance intravenous contrast. COMPARISON: Brain MRI 09/22/2023 FINDINGS: There is no acute ischemic infarct or intracranial hemorrhage. There are scattered areas of increased T2-weighted signal intensity in the cerebral white matter with a periventricular predomina nce. There is involvement of some of the subcortical regions. No infratentorial lesions. No abnormal contrast enhancement. The ventricles are normal in size. There are likely changes of ocular lens repl acement surgeries. The paranasal sinuses are clear. The mastoid air cells are normal. IMPRESSION: 1. Stable moderate nonspecific cerebral white matter disease, likely a combination of chronic small v essel ischemic disease and multiple sclerosis. Reviewed, dictated and finalized at location A. IMPRESSION: 1. Stable moderate nonspecific cerebral white matter disease, likely a combinat ion of chronic small vessel ischemic disease and multiple sclerosis.
== END 2024-02-03 12:25 ==
PROVIDERS: PCP Nurse Practitioner Family; Visit Provider Student in an Organized Health Care Education/Training Program
DX: G35 Multiple sclerosis (principal); H53.8 Other visual disturbances; M47.894 Other spondylosis, thoracic region; M50.30 Other cervical disc degeneration, unspecified cervical region; R93.0 Abnormal findings on diagnostic imaging of skull and head, not elsewhere classified
CPT/HCPCS: 70543; 70553; 72156; 72157; A9577

== ENCOUNTER 2024-06-27 07:46 | Outpatient (CLI) | payer OTHER, SELFPAY ==
--- NOTE | ~2024-06-27 | DEXA_ITS ---
Bone Density Report Name: KOTA KUNZ Age: 83 Sex: Female Ethnicity: White Date of : 1940 Indication: postmenopausal; screening for osteoporosis; height loss; Referring Provider: AQUILINO GONZALEZ Study: Bone densitometry was performed. Exam Date: June 27, 2024 Accession number: [id number] Bone Density: Region BMD T-score Z-score Classification AP Spine(L2, L3, L4) 0.958 -1.1 1.8 Osteopenia Femoral Neck (Left) 0.633 -1.9 0.5 Osteopenia Total Hip (Left) 0.730 -1.7 0.5 Osteopenia Femoral Neck (Right) 0.644 -1.8 0.6 Osteopenia Total Hip (Right) 0.753 -1.6 0.7 Osteopenia Total Hip Mean 0.741 -1.7 0.6 Osteopenia World Health Organization criteria for BMD impression classify patients as: Normal (T-score at or above -1.0), Osteopenia (T-score between -1.0 and -2.5), or Osteoporosis (T-score at or below -2.5). 10-year Fracture Risk(1): Major Osteoporotic Fracture 14% Hip Fracture 4.5% Reported Risk Factors: [place] (), Neck BMD=0.633, BMI=22.3 (1) FRAX(R) Version 3.08. Fracture probability calculated for an untreated patient. Fracture probability may be lower if the patient has received treatment. Previous Exams: Region Exam Age BMD T-score BMD Change BMD Change Date g/cm2 vs Baseline vs Previous AP Spine (L2-L4) 06/27/2024 83 0.958 -1.1 -0.114 (-10.7% -0.114 (-10.7% 11/11/2018 78 1.072 -0.1 Total Hip(Left) 06/27/2024 83 0.730 -1.7 -0.140 (-16.0% -0.140 (-16.0% 11/11/2018 78 0.870 -0.6 Total Hip(Right) 06/27/2024 83 0.753 -1.6 -0.111 (-12.9% -0.111 (-12.9% 11/11/2018 78 0.864 -0.6 *Denotes significance at 95% confidence level, LSC for AP Spine = 0.022 g/cm2, LSC for Total Hip = 0.027 g/cm2 # Denotes dissimilar scan types or analysis methods Clinical Information Provided by Patient: Has used the following medications: Vitamin D Patient maximum height was 63 Menopause Age: 48 Onset of menses at age 13 Number of children 1 Impression: The patient has low bone mass, based on the Left Femoral Neck T-score. The patient has an estimated ten-year risk of hip fracture of 4.5% and an estimated ten-year risk of major fracture of 14%, based on the WHO FRAX algorithm. No significant bone loss was observed. Discussion: BONE DENSITY IS LOW AT ONE OR MORE SKELETAL SITES. THE PATIENT'S BMD AND CLINICAL RISK FACTORS CONTRIBUTE TO THIS PATIENT'S INCREASED RISK OF FRACTURE. This patient's lowest T-score is low at one or more skeletal sites. It meets the World Health Organization's (WHO) criteria for ?low bone mass? (T-score between -1.0 and -2.5). The patient's 10-year risk of hip fracture as calculated by FRAX exceeds the threshold where pharmacological therapy is recommended by the National Osteoporosis Foundation (NOF). However, all treatment decisions require clinical judgment and consideration of individual patient factors, including patient preferences, comorbidities, previous drug use, risk factors not captured in the FRAX model (e.g., frailty, falls, vitamin D deficiency, increased bone turnover, interval significant decline in bone density) and possible under or overestimation of fracture risk by FRAX. The patient should follow a healthful lifestyle (good nutrition with adequate calcium and vitamin D, and appropriate weight-bearing exercise). Follow-Up: Consider a repeat BMD and Vertebral Fracture Assessment (VFA) exam in 2 years or sooner if medically necessary, to reassess this patient's status. Reported by: MARY on 06/27/2024 8:20:00 AM. Reviewed, dictated and finalized at location A.
--- OUTSIDE RECORDS SUMMARY | 2024-07-04 05:23 | XMS_ITS | Encounter Summary ---
Author Organization [employer] Address [address] [place] [address] Care Team Providers Care Brokerage Coordinator Name Role Phone Unavailable Primary Care Provider Unavailabl e Encounter Details Date Type Department Care Team (Latest Contact Info) Description 04/02/2003 Outpatient Historical [facility]O [facility] Duane Catalan V., PhD [address] [place] [address] CO PILOT DISORDER NEC (Primary Dx) Social History Tobacco Use Types Packs/Day Years Used Date Smoking Tobacco: Never Assessed Sex and Gender Information Value Date Recorded Sex Assigned at Not on file Gender Identity Not on file Sexual Orientation Not on file documented as of this encounter Plan of Treatment Not on file documented as of this encounter Visit Diagnoses Diagnosis Other specified disorder of nervous system- Primary documented in this encounter
--- OUTSIDE RECORDS SUMMARY | 2024-07-04 05:23 | XMS_ITS | Continuity of Care Document ---
Author Organization [facility] Address [address] [place] [address] [place] [address] Phone Care Team Providers Care Barrel Ribs Solderer Name Role Phone Gume Rooney DO Unavailable Unavailable Advance Directives Directive Yes / No Effective Date File Name No Information Encounters Encounter Description Practice Location Reason(s) For Visit Diagnoses Date Provider Providers Copied on Encounter [facility], [address], [place], [place], [id number], [place] tel:[phone] [facility] No Information Nevin Castañeda. [address] [facility], [place], [address], [place]. tel:[phone] Family History Family Member Type Diagnosis Age At Onset No Information Payers Payer name Insurance type Covered republican ID Authoriza tion(s) No Information Social History Type Description Quantity Date Captured Comments Sex Female Smoking Status No Information Chief Complaint And Reason For Visit No Information Reason For Referral Reason For Referral No Information History Of Present Illness Encounter Date Complaint History Of Prese nt Illness No Information Functional Status Date Functional Assessmen t No Information Instructions Date Instruction Additional Infor mation No Information Assessments Type Assessment Date No Information Patient Care Teams Name Effective Dates (start - stop) Status Members No Information
--- OUTSIDE RECORDS SUMMARY | 2024-07-04 05:23 | XMS_ITS | Encounter Summary ---
Author Organization [employer] Address [address] [place] [address] Care Team Providers Care Manager Intel Name Role Phone Unavailable Primary Care Provider Unavailabl e Encounter Details Date Type Department Care Team (Late st Contact Info) Description 03/21/2003 Outpatient Historical [facility] MRI DEPT Dax Javed MD [address] [facility] [address] [place] [id number] ORGANIC BRAIN SYND NEC (Primary Dx) Social History Tobacco Use Types Packs/Day Years Used Date Smoking Tobacco: Never Assessed Sex and Gender Information Value Date Recorded Sex Assigned at Not on file Gender Identity Not on file Sexual Orientation Not on file documented as of this encounter Plan of Treatment Not on file documented as of this encounter Visit Diagnoses Diagnosis 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
--- OUTSIDE RECORDS SUMMARY | 2024-07-04 05:23 | XMS_ITS | Encounter Summary ---
Author Organization [facility] Address [address] [place] [address] Care Team Providers Care Record Changer Tester Name Role Phone Unavailable Primary Care Provider Unavailabl e Encounter Details Date Type Department Care Team (Latest Contact Info) Description 09/01/2006 Outpatient Historical [facility] Giselle Hare MD Diffuse Cystic Mastopathy (Primary Dx) Social History Tobacco Use Types Packs/Day Years Used Date Smoking Tobacco: Never Assessed Sex and Gender Information Value Date Recorded Sex Assigned at Not on file Gender Identity Not on file Sexual Orientation Not on file documented as of this encounter Plan of Treatment Not on file documented as of this encounter Visit Diagnoses Diagnosis Diffuse cystic mastopathy- Primary documented in this encounter
--- OUTSIDE RECORDS SUMMARY | 2024-07-04 05:23 | XMS_ITS | Encounter Summary ---
Author Organization [facility] Address [address] [place] [address] Care Team Providers Care Log Buncher Name Role Phone Giselle Lorenzo MD Primary Care Provider Reason for Referral * Consultation (Routine) - Denied Specialty Diagnoses / Procedures Referred By Contac t Referred To Contact Neuro Ophthalmology Diagnoses Exudative age-related macular degeneration of right eye, unspecified stage (HCC) Unspecified optic neuritis Multiple sclerosis (HCC) Eloisa Cristina MD [address] [place] [address] Ext Scan Neuro Ophth Referral ID Status Reason Start Date Expiration Date V isits Requested Visits Authorized [id number] Denied Specialty Services Required 06/07/2024 06/07/2025 1 0 PRODUCTION ASSISTANT Encounter Details Date Type Department Care Team (Late st Contact Info) Description 06/07/2024 Transcribe Orders [facility] - Centralized Scheduling [address] [place] [phone] Eloisa Cristina MD [address] [place] [address] Exudative age-related macular degeneration of right eye, unspecified stage (HCC) ; Unspecified optic neuritis; Multiple sclerosis (HCC) Social History Tobacco Use Types Packs/Day Years Used Date Smoking Tobacco: Never Assessed Sex and Gender Information Value Date Recorded Sex Assigned at Not on file Gender Identity Not on file Sexual Orientation Not on file documented as of this encounter Plan of Treatment Scheduled Referrals Name Type Priority Associated Diagnoses Order Schedule AMB REFERRAL TO OPHTHALMOLOGY Outpatient Referral Routine Exudative age-related macular degeneration of right eye, unspecified stage (HCC) Unspecified optic neuritis Multiple sclerosis (HCC) 1 Occurrences starting 06/07/2024 until 06/07/2025 documented as of this encounter Visit Diagnoses Diagnosis Exudative age-related macular degeneration of right eye, unspecified stage (HCC)- Primary Unspecified optic neuritis Multiple sclerosis (HCC) Multiple sclerosis documented in this encounter Care Teams Log Buncher Relationship Specialty Start Date End Date Giselle Lorenzo MD [address] [place] [phone] PCP - General 12/13/17 documented as of this encounter
--- OUTSIDE RECORDS SUMMARY | 2024-07-04 05:23 | XMS_ITS | Clinical Summary ---
Author Organization [facility] Address [address] [place] [address] Phone Care Team Providers Care Telegraph Operator Name Role Phone Unavailable Primary Care Provider Unavailabl e Social History Tobacco Use Types Packs/Day Years Used Date Smoking Tobacco: Never Assessed Sex and Gender Information Value Date Recorded Sex Assigned at Not on file Gender Identity Not on file Sexual Orientation Not on file Plan of Treatment Health Maintenance Due Date Last Done Comments DTAP/TDAP/TD VACCINES (1 - Tdap) 1960 ZOSTER VACCINE (1 of 2) 09/26/1991 OSTEOPOROSIS SCREENING 2006 PNEUMOCOCCAL VACCINE 65+ YEARS (1 of 1 - PCV) 09/26/19 07 RSV VACCINE (60+ or ) (1 - 1-dose 75+ series) 2016 INFLUENZA VACCINE (#1) 2024
--- OUTSIDE RECORDS SUMMARY | 2024-07-04 05:23 | XMS_ITS | Encounter Summary ---
Author Organization [facility] Address [address] [place] [address] Care Team Providers Care Kitchen Help Handyman Name Role Phone Unavailable Primary Care Provider Unavailabl e Encounter Details Date Type Department Care Team (Late st Contact Info) Description 05/30/2003 Outpatient Historical Division of Neurology [address] [address] Dax Javed MD [address] [facility] [address] [place] [address] Social History Tobacco Use Types Packs/Day Years Used Date Smoking Tobacco: Never Assessed Sex and Gender Information Value Date Recorded Sex Assigned at Not on file Gender Identity Not on file Sexual Orientation Not on file documented as of this encounter Plan of Treatment Not on file documented as of this encounter Visit Diagnoses Not on filedocumented in this encounter
--- OUTSIDE RECORDS SUMMARY | 2024-07-04 05:23 | XMS_ITS | Encounter Summary ---
Author Organization [employer] [facility] Address [address] [place] [address] Care Team Providers Care Concrete Fence Builder Name Role Phone Unavailable Primary Care Provider Unavailabl e Encounter Details Date Type Department Care Team (Latest Contact Info) Description 07/23/2016 5:45 PM STEAMFITTER SUPERVISOR - 07/23/2016 11:59 PM STEAMFITTER SUPERVISOR Hospital Encounter [facility] Laboratory Services S Replaced By [facility] [address] [place] [phone] Nilsa Lindquist MD [address] [address] Discharge Disposition: Home or Self Care Social History Tobacco Use Types Packs/Day Years Used Date Smoking Tobacco: Never Assessed Sex and Gender Information Value Date Recorded Sex Assigned at Not on file Gender Identity Not on file Sexual Orientation Not on file documented as of this encounter Plan of Treatment Not on file documented as of this encounter Procedures Procedure Name Priority Date/Time Associated Diagnosis Comments PATHOLOGY Pathology 07/23/2016 8:57 PM STEAMFITTER SUPERVISOR Encounter for biopsy documented in this encounter Results * PATHOLOGY (07/23/2016 8:57 PM STEAMFITTER SUPERVISOR) CASE REPORT Surgical Pathology Report ? Case: [id number] ? Authorizing Provider: ??Nilsa Lindquist MD ? Collected: ? 07/23/2016 08:57 PM ? Ordering Location: ? [facility] ?? Received: ?07/23/2016 08:58 PM ? Services [place] ? Pathologist: ? Chey Patten MD ? Specimen: ?Tongue, Left border ? 07/28/2016 2:51 PM [facility] FINAL DIAGNOSIS Oral cavity, tongue, left lateral border, excision: - Irritation fibroma, inflamed with focal erosion. - Rare fungal organisms identified. 07/28/2016 2:51 PM [facility] IMEN DESCRIPTION Excisional biopsy left lateral border or tongue. 07/28/2016 2:51 PM [facility] OPERATIVE PROCEDURE Excisional biopsy. 07/28/2016 2:51 PM [facility] CLINICAL DIAGNOSIS A 6.4-mm, mucosal colored silk suture francois anterior border. 07/28/2016 2:51 PM [facility] GROSS DESCRIPTION Received in a single container labeled Irais Murphy and left border of tongue is a 0.7 x 0.7 teardrop-shaped portion of pyle-malin mucosa excised to a depth of 0.2 cm. The surgeon has placed a suture designating anterior or 12 o'clock. The mucosal surface is remarkable for a 0.4 x 0.3-cm firm, white papule located 0.1 cm from 9 o'clock. The 3 o'clock half is inked blue while the 9 o'clock half is inked black and the specimen is bisected with the 12 o'clock half designated by the application of yellow ink. The specimen is entirely submitted labeled A1. LUIZA/delfina 07/28/2016 2:51 PM [facility] MICROSCOPIC DESCRIPTION The slides are labeled [id number] and Irais Murphy. Sections of the left lateral tongue show two fragments of tissue with acanthotic squamous epithelium with parakeratosis.The underlying submucosa has increased collage bundles arranged in a haphazard fashion. Focal surface erosion is identified. Also noted is a moderate amount of acute and chronic inflammation seen both within the submucosa and within the parakeratosis along with bacterial contamination. A GMS stain highlights rare fungal organisms within the epithelium. No features of overt dysplasia or malignancy are identified. 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 07/28/2016 2:51 PM STEAMFITTER SUPERVISOR [facility] COMMENT Special stain and/or immunohistochemical results are interpreted with controls that demonstrate appropriate staining reactions. Note on use of immunocytochemistry reagents: This test was developed and its performance characteristic determined by [facility], Department of Laboratory Medicine. It has not been cleared or approved by the U.S. Food and Drug Administration. The FDA has determined that such clearance or approval is not necessary. The test is used for clinical purpose. It should not be regarded as investigational or for research. This laboratory is certified to perform high complexity testing. Case types starting with WS, WF, WB and WH are performed by [address] [place], [address]. All other case types are performed by [address] [facility], [address]. 07/28/2016 2:51 PM [facility] Tissue ENTIRE TONGUE / Unknown 07/23/2016 8:57 PM STEAMFITTER SUPERVISOR 07/23/2016 8:58 PM STEAMFITTER SUPERVISOR Nilsa Lindquist MD PATHOLOGY/CYTOLOGY O RDERABLES Performing Organization Address City/State/[facility] Co de Phone Number [facility]# [id number] [address] [place] [address] documented in this encounter Visit Diagnoses Diagnosis Encounter for biopsy- Primary Other specified pre-operative examination documented in this encounter
--- OUTSIDE RECORDS SUMMARY | 2024-07-04 05:23 | XMS_ITS | Referral Summary ---
Author Organization [facility] Address [address] [place] [address] Care Team Providers Care Pick Up Man Name Role Phone Giselle Lorenzo MD Primary Care Provider [phone] Source Comments [facility],non-owned Affiliates and Associated Physician Practices is amultiple site organization consisting of ambulatory clinics and hospital sitesin [place], [place], [place] and [place]. This disclosure is being madepursuant to the Care Everywhere program and may not contain all information available regarding this patient. Last updated 18.[facility] Encounters Date Type Department Care Team Description 06/07/2024 Transcribe Orders [facility] - Centralized Scheduling [address] [place] [address] Eloisa Cristina MD Exudative age-related macular degeneration of right eye, unspecified stage (HCC) ; Unspecified optic neuritis; Multiple sclerosis (HCC) from Last 3 Months Social History Tobacco Use Types Packs/Day Years Used Date Smoking Tobacco: Never Assessed Sex and Gender Information Value Date Recorded Sex Assigned at Not on file Gender Identity Not on file Sexual Orientation Not on file Plan of Treatment Not on file Care Teams Pick Up Man Relationship Specialty Start Date End Date Giselle Lorenzo MD [address] [place] [phone] [facility] - General 12/13/17
--- OUTSIDE RECORDS SUMMARY | 2024-07-04 05:23 | XMS_ITS ---
Author Organization [facility] Address [address] [place] [address] Care Team Providers Care Reject Opener And Filler Name Role Phone Brett Condon Primary Care Provider [phone] Allergies Allergen (clinical drug ingredient) Drug/Non Drug Allergy documented on EMR Reaction Allergy Type Onset Date Status Penicillin Unknown Drug Allergy Active Results Component Value Reference Range Notes X ray : Dental, PA - First Reviewed date:03/08/2024 09:08:56 AM Interpretation: Performing Lab: Notes/Report: REASON FOR VISIT Dental Problem Focus, [patient states teeth feel crumbling Vital Signs Blood pressure systolic 146 mm Hg 03/08/20 24 Blood pressure diastolic 85 mm Hg 024 Encounters Encounter Location Date Provider Diagnosis [address] [address] 03/08/2024 Brett Condon Dental examination Z01.20 Assessments Encounter Date Diagnosis (ICD Code) Assessment Notes Treatment Notes Treatment Clinical Notes Section Notes 03/08/2024 Dental examination (ICD-10 - Z01.20) Plan Of Treatment Next Appt Details Follow Up: prn, Reason: Progress Notes * MURPHY, AntwansDOB: [birth year] (83 yo F)Acc No.[id number]:03/08/2024 Dental Problem Focus Patient:?MURPHYKristen GILMANlis Provider:?Brett Condon DDS :1940???Age:83 Y???Sex:Female D ate:03/08/2024 Address:[address] [place], [place] [phone] Check In:07:56 AM CSTCheck O ut:09:57 AM CRYSTALLIZER OPERATOR Subjective: * Chief Complaints: * ???1. Dental Problem Focus. 2. [patient states teeth feel crumbling. * Medical History:?Medical His tory Verified. * Medications:?None * Allergies:?Penicillin. Objective: * Vitals: BP sittin/85mm Hg?? 03/08/2024 08:55:0 4 AM CDT?? * Dental Examination/Plan :? Tooth / Surface Status Description Provider Full Mouth C BITEWINGS - FOUR FILMS Full Mouth C LTD ORAL EVALUATION - PROBLEM FOCUS 03/08/2024 * Examination: ???Dental: ?Dentist completing the exam?Dr. Condon.?Chief Complaint/HPI?Tooth pain, Upper quad, Right, Left.?Extraoral Examination?WNL.?Intraoral Examination?#3 has existing crown, no decay, #14 has mesial caries, restorable.?Radiographic Examination?Interproximal Decay.?Behavior?Frankl 4.?Treatment plan?Discussed treatment plan with patient, Discussed treatment options with patient, Patient verbally accepts treatment plan.? Assessment: * Assessment: 1.?Dental examination - Z01. 20 (Primary)??? Plan: * Treatment: * Procedure Codes:?D0140 LTD O RAL EVALUATION - PROBLEM FOCUS, TthNo: FM, Srfc: , D0274 BITEWINGS - FOUR FILMS, TthNo: FM, Srfc: , D0220 INTRAORL-PERIAPICAL 1 FILM [id number] * Follow Up:?prn * * Sign off status: Completed Visit Status:?CHK (Check Out ) true * Provider:?Brett Condon DDS Date:? 4 Generated for Joanna fowler/Kirsten/eTzeenatsmitting on:?07/04/2024 05:22 AM CRYSTALLIZER OPERATOR History and Physical Notes * Examination Category Sub-Category Detail Notes Category Not es Dental Extraoral Examination WNL Intraoral Examination #3 has existing cr own, no decay, #14 has mesial caries, restorable Radiographic Examination Interproximal D ecay Chief Complaint/HPI Tooth pain, Upper qu ad, Right, Left Dentist completing the exam Dr. Taurus Roberts 4 Treatment plan Discussed treatment plan with patient, Discussed treatment options with patient, Patient verbally accepts treatment plan
--- OUTSIDE RECORDS SUMMARY | 2024-07-04 05:23 | XMS_ITS | Patient Health Record ---
Author Organization [facility] Address [address] [place] [address] Care Team Providers Care Outpatient Coding Specialist Name Role Phone Brett Condon Primary Care Provider Allergies Allergen (clinical drug ingredient) Drug/Non Drug Allergy documented on EMR Reaction Allergy Type Onset Date Status Penicillin Unknown Drug Allergy Active Results Component Value Reference Range Notes X ray : Dental, PA - First Reviewed date:03/08/2024 09:08:56 AM Interpretation: Performing Lab: Notes/Report: Reason For Referral No Information Vital Signs Blood pressure diastolic 85 mm Hg 03/08/2024 Blood pressure systolic 146 mm Hg 03/08/2024 Encounters Encounter Location Date Provider Diagnosis [address] [address] 03/08/2024 Brett Condon Dental examination Z01.20 Assessments Encounter Date Diagnosis (ICD Code) Assessment Notes Treatment Notes Treatment Clinical Notes Section Notes 03/08/2024 Dental examination (ICD-10 - Z01.20) Plan Of Treatment No Information
--- OUTSIDE RECORDS SUMMARY | 2024-07-04 05:23 | XMS_ITS | Encounter Summary ---
Author Organization [employer] Address [address] [place] [address] Care Team Providers Care Filling Hauler Weaving Name Role Phone Unavailable Primary Care Provider Unavailabl e Encounter Details Date Type Department Care Team (Latest Contact Info) Description 02/21/2003 Inpatient Historical HIS PATIENT IN A BED Dax Javed MD [address] [facility] [address] [place] [address] CONVULSIONS, OTHER (Primary Dx) Social History Tobacco Use Types Packs/Day Years Used Date Smoking Tobacco: Never Assessed Sex and Gender Information Value Date Recorded Sex Assigned at Not on file Gender Identity Not on file Sexual Orientation Not on file documented as of this encounter Plan of Treatment Not on file documented as of this encounter Visit Diagnoses Diagnosis Other convulsions- Primary documented in this encounter
--- OUTSIDE RECORDS SUMMARY | 2024-07-04 05:23 | XMS_ITS | Encounter Summary ---
Author Organization [facility] Address [address] [place] [address] Care Team Providers Care Convenience Store Clerk Name Role Phone Unavailable Primary Care Provider Unavailabl e Encounter Details Date Type Department Care Team (Late st Contact Info) Description 02/21/2003 Outpatient Historical [facility] Services [facility] [address] [place] [address] [place] [address] Dax Javed MD [address] [place] [address] Social History Tobacco Use Types [...]
--- OUTSIDE RECORDS SUMMARY | 2024-07-04 05:23 | XMS_ITS | Patient Health Summary ---
Author Organization [facility] Address [address] [facility] [place] [address] Care Team Providers Care Cloth Burler Name Role Phone Giselle Lorenzo MD Primary Care Provider Note from [facility],non-owned Affiliates and Associated Physician Practices is amultiple site organization consisting of ambulatory clinics and hospital sitesin [place], [place], [place] and [place]. This disclosure is being madepursuant to the Care Everywhere program and may not contain all information available regarding this patient. Last updated 18.[facility] Social History Tobacco Use Types Packs/Day Years Used Date Smoking Tobacco: Never Assessed Sex and Gender Information Value Date Recorded Sex Assigned at Not on file Gender Identity Not on file Sexual Orientation Not on file Care Teams Cloth Burler Relationship Specialty Start Date End Date Giselle Lorenzo MD [address] [place] [phone] PCP - General 12/13/17
--- OUTSIDE RECORDS SUMMARY | 2024-07-04 05:23 | XMS_ITS | Encounter Summary ---
Author Organization [employer] Address [address] [place] [address] Care Team Providers Care Lacquer Coater Name Role Phone Unavailable Primary Care Provider Unavailabl e Encounter Details Date Type Department Care Team (Late st Contact Info) Description 02/07/2003 Outpatient Historical Division of Neurology [address] [address] Dax Javed MD [address] [place] [address] Social History Tobacco Use Types [...]
--- OUTSIDE RECORDS SUMMARY | 2024-07-04 05:23 | XMS_ITS | Clinical Summary ---
Author Organization [facility] Address [address] [place] [address] Care Team Providers Care Filer Finish Name Role Phone Giselle Lorenzo MD Primary Care Provider Source Comments [facility],non-owned Affiliates and Associated Physician Practices is amultiple site organization consisting of ambulatory clinics and hospital sitesin [place], [place], [place] and [place]. This disclosure is being madepursuant to the Care Everywhere program and may not contain all information available regarding this patient. Last updated 18.[facility] Encounters Date Type Department Care Team Description 06/07/2024 Transcribe Orders [facility] - Centralized Scheduling [address] [place] [phone] Eloisa Cristina MD Exudative age-related macular degeneration [...] Health Maintenance Due Date Last Done Comments BONE DENSITY TESTING 1940 DTAP/TDAP/TD VACCINES (1 - Tdap) 1960 ZOSTER VACCINE (1 of 2) 09/26/1991 PNEUMOCOCCAL VACCINE 65+ (1 of 1 - PCV) 2006 Respiratory Syncytial Virus (RSV) Vaccine Pt: or over 60 yrs (1 - 1-dose 75+ series) 2016 DEPRESSION SCREENING 07/05/2023 MEDICARE AWV ? CALENDAR YEAR 2023 COVID-19 VACCINE ( - 2023-2 5 season) 2024 INFLUENZA VACCINE (#1) 2024 HEPATITIS B VACCINE Aged Out No longe r eligible based on patient's age to complete this topic HIB VACCINE Aged Out No longer eligi ble based on patient's age to complete this topic HPV VACCINE Aged Out No longer eligi ble based on patient's age to complete this topic MENINGOCOCCAL VACCINE Aged Out No nicolette neda eligible based on patient's age to complete this topic Care Teams Filer Finish Relationship Specialty Start Date End Date Giselle Lorenzo MD [address] [place] [phone] PCP - General 12/13/17
== END 2024-06-27 07:47 | disposition home or self-care (01) ==
PROVIDERS: PCP Nurse Practitioner Family; Visit Provider Nurse Practitioner Family
DX: Z78.0 Asymptomatic menopausal state (principal); G35 Multiple sclerosis; Z13.820 Encounter for screening for osteoporosis; M85.88 Other specified disorders of bone density and structure, other site; M85.852 Other specified disorders of bone density and structure, left thigh; M85.851 Other specified disorders of bone density and structure, right thigh
CPT/HCPCS: 77080

== ENCOUNTER 2024-06-29 21:19 | Emergency (ER) | payer OTHER, SELFPAY ==
--- NOTE | ~2024-06-29 | XR_ITS ---
EXAMINATION: XR hip LT 2V w AP pelvis DATE: 06/30/2024 08:13 INDICATION: Left hip pain. Fall. TECHNIQUE: An anteroposterior view of the pelvis and 2 views of left hip were obtained. COMPARISON: Pelvis radiograph 03/30/2022 FINDINGS: There is lumbar levoscoliosis and severe spondylosis. No fracture. There is mild osteoarthr itis of the hips. Pelvic calcifications are likely uterine fibroids. IMPRESSION: 1. Mild osteoarthritis of the hips. Reviewed, dictated and finalized at location A. 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
--- NOTE | ~2024-06-29 | CT_ITS ---
EXAMINATION: CT brain wo con DATE: 06/30/2024 06:39 INDICATION: Fall. Head injury. TECHNIQUE: Computed tomography (CT) of the head was performed without intravenous contrast. The mA wa s adjusted according to patient size. Iterative reconstruction technique was employed. The dose-lengt h product was 681.00 mGy-cm. COMPARISON: Head CT 03/30/2022 FINDINGS: There are scattered areas of low attenuation in the cerebral white matter. There is an old lacunar infarct in the right basal ganglia. There is no intracranial hemorrhage, acute infarction, or abnormal intracranial mass lesion. The ventricles are normal in size. There are likely changes of oc ular lens replacement surgeries. The paranasal sinuses are clear. The mastoid air cells are normal. IMPRESSION: 1. Old lacunar infarct in the right basal ganglia. 2. Stable moderate nonspecific cerebral white matter disease, which likely represents chronic small v essel ischemic disease. Reviewed, dictated and finalized at location A. GAUGER AND LUBRICATOR TENDER IMPRESSION: 1. Old lacunar infarct in the right basal ganglia. 2. Stable moderate nonspecific cerebral white matter disease, which likely repr esents chronic small vessel ischemic disease.
--- NOTE | ~2024-06-29 | CT_ITS ---
EXAMINATION: CT cervical spine wo con DATE: 06/30/2024 06:40 INDICATION: Neck injury. Ground level fall. TECHNIQUE: Computed tomography (CT) of the cervical spine was performed without intravenous contrast. Automated exposure control and iterative reconstruction technique were employed. The dose-length pro duct was 130.75 mGy-cm. COMPARISON: CT cervical spine 03/30/2022 FINDINGS: There is scarring at the lung apices. There is mild bronchiectasis in right upper lobe. The re is kyphosis of cervical spine. There is 2 mm retrolisthesis of C5 on C6 and 2 mm anterolisthesis o f C7 on T1. There is 5 degrees levocurvature of cervical spine. Vertebral body heights are normal. Th ere is mildly decreased disc height at C2-C3 and severely decreased disc height at C5-C6 and C6-C7. T he following disc levels are specifically discussed: C2-C3: There is ankylosis of the uncovertebral joints without hypertrophy. There is ankylosis of the facet joints with mild hypertrophy. There is no neural foraminal stenosis. There is no central canal stenosis. C3-C4: There is severe right and mild left uncovertebral joint osteoarthritis. There is severe bilate ral facet joint osteoarthritis. There is moderate right neural foraminal stenosis. There is no centra l canal stenosis. C4-C5: There is mild right and severe left uncovertebral joint osteoarthritis. There is severe bilate ral facet joint osteoarthritis. There is mild bilateral neural foraminal stenosis. There is mild cent ral canal stenosis. C5-C6: There is severe bilateral uncovertebral joint osteoarthritis. There is severe bilateral facet joint osteoarthritis. There is mild bilateral neural foraminal stenosis. There is mild central canal stenosis. C6-C7: There is severe bilateral uncovertebral joint osteoarthritis. There is moderate right and yolanda re left facet joint osteoarthritis. There is mild right and moderate left neural foraminal stenosis. There is mild central canal stenosis. C7-T1: There is no uncovertebral joint osteoarthritis. There is severe bilateral facet joint osteoart hritis. There is mild right neural foraminal stenosis. There is no central canal stenosis. IMPRESSION: 1. No fracture 2. Severe cervical spondylosis. Reviewed, dictated and finalized at location A. RVISOR TUNNEL HEADING
[2024-06-29 21:27] VITALS: BP 163/75; PULSE 74; RESP 18; TEMP 36.1; O2SAT 99
[2024-06-30 03:36] VITALS: BP 127/72; PULSE 76; RESP 18; O2SAT 97
[2024-06-30 05:50] VITALS: BP 158/71; PULSE 65; RESP 16; TEMP 37.1; O2SAT 99
[2024-06-30 07:00] VITALS: BP 152/80; PULSE 80; RESP 16; TEMP 36.4; O2SAT 98
--- NOTE | 2024-06-30 07:53 | ED_ITS ---
HPI - General Adult General Chief complaint: Fall Stated complaint: fall, head injury Time Seen by Provider: 06/30/24 06:56 History of Present Illness HPI narrative: 83-year-old female presenting to the emergency department for evaluation after having a ground level fall. Patient was pushing a grocery cart when she fell backward and struck her head. Patient denies loss consciousness. Patient was complaining of head neck pain initially. After sitting in the bed patient states that she is having some pain in her left hip. Patient states she was able to ambulate after the accident. Patient does have a small punctate wound to the superior scalp that does not need suture repair. Related Data Home Medications ?Medication ?Instructions ?Recorded ?Confirmed ?Last Taken ?Type calcium carbonate (Calcium 600) 600 mg PO DAILY 02/23/20 03/28/24 Unknown History ascorbate calcium (vitamin C) 500 1 g PO BID 11/25/20 03/28/24 Unknown History mg tablet vitamin E 200 unit capsule 400 unit PO DAILY 11/25/20 03/28/24 Unknown History cholecalciferol (vitamin D3) 50 50 mcg PO DAILY 08/25/22 03/28/24 Unknown History mcg (2,000 unit) tablet amino acid-hydrolyzed 1 ea PO DAILY 03/11/23 03/28/24 Unknown History collagen-whey 15 gram-100 kcal/30 mL oral liquid vit C 250 mg-vit E 90 mg-zinc 40 1 tablet PO BID 03/18/23 03/28/24 Unknown History mg-copper 1 [id number] capsule (PreserVision AREDS-2) aflibercept 2 mg/0.05 mL 2 mg intravitreal ONCE 04/27/24 Unknown History intravitreal solution for injection (Eylea) Allergies Allergy/AdvReac Type Severity Reaction Status Date / Time amoxicillin Allergy Unknown Hives / Verified 06/29/24 21:25 Red Face Penicillins Allergy Unknown Hives Verified 06/29/24 21:25 Review of Systems Review of Systems: All systems reviewed & are unremarkable except as noted in HPI and below PMFSH Past Medical History Medical History Allergies Arthritis Multiple sclerosis Osteoarthritis of both knees Surgical History Surgical History History of ankle surgery History of appendectomy (1962) History of elbow surgery Family History Family History Father Hypertension Cerebrovascular accident Patient's father is Mother Hypertension Family history of diabetes mellitus in first degree relative Family history of congestive heart failure Diabetes mellitus Sibling Family history of gastrointestinal disorder Family history of lung cancer Family history of heart disease in male family member before age 55 Patient's brother is Family history of cardiovascular disease Other Family history of malignant neoplasm of breast Social History Social History (Updated 05/22/24 @ 15:33 by Deidre Love) Social History: Surrogate medical decision maker: Kinza Dunn, daughter. Code status: Full code. Caffeine-occasional coffee Smoking status: Never smoker Second hand tobacco smoke exposure: Yes Alcohol intake: never Substance use: never Substance use type: does not use Do You Feel Safe in your Home?: Yes Lack of Transportation: No Lack of Food: Never True Current Housing: I Have Housing Concerned About Future Housing: No Difficulty Paying Gas/Electric Bills: No Difficulty Paying for Meds: No Currently Unemployed: No Education: High School Diploma/GED Difficulty w/ Childcare or Family Care: No Living arrangements: with family Spiritual care concerns: No Exam Narrative: APPEARANCE: Well appearing, no pain, no distress, well-nourished. HEAD: normocephalic, atraumatic. EYES: PERRLA/EOMI, conjunctivae clear. NOSE: Normal no drainage EARS:TMS clear with good light reflex. THROAT: Pharynx clear, no exudate. NECK: Supple. No adenopathy, no masses. RESPIRATORY: Airway patent, respirations nonlabored. Clear to auscultation bilaterally, no rales, rhonchi, wheezing. CARDIOVASCULAR: Regular rate and rhythm without murmurs rubs or gallops. ABDOMINAL: Soft, nontender, nondistended, normal bowel sounds MUSCULOSKELETAL: Moves all extremities. Strength/ROM intact, No edema, No calf tenderness. NEURO: Alert. Cranial nerves II through XII intact. Good gait. Good coordination SKIN: Punctate laceration on superior scalp with no active bleeding and no need for suture repair Course Vital Signs Vital signs: Vital Signs Temperature 97 F L 06/29/24 21:27 Pulse Rate 74 06/29/24 21:27 Respiratory Rate 18 06/29/24 21:27 Blood Pressure 163/75 H 06/29/24 21:27 Pulse Oximetry 99 06/29/24 21:27 Temperature 97.9 F 06/30/24 09:00 Pulse Rate 82 06/30/24 09:00 Respiratory Rate 16 06/30/24 09:00 Blood Pressure 150/76 H 06/30/24 09:00 Pulse Oximetry 99 06/30/24 09:00 Medical Decision Making MDM Narrative Medical decision making narrative: 83-year-old female presents emergency department for evaluation after having a fall while pushing her grocery cart. Patient had negative CT brain CT cervical spine and left hip x-ray. Patient was able to ambulate at her baseline. Patient states this was a mechanical fall and denies any illness prior to the fall. Patient is able to ambulate without issue after the fall. All questions concerns were addressed patient was stable at time of discharge. Differential Diagnosis Differential Diagnosis: Subdural hematoma, subarachnoid hemorrhage, cervical spine fracture, concussion, contusion, left hip strain, left hip fracture, UTI, syncope Vital Signs Vital Signs: Vital Signs Temperature 97 F L 06/29/24 21:27 Pulse Rate 74 06/29/24 21:27 Respiratory Rate 18 06/29/24 21:27 Blood Pressure 163/75 H 06/29/24 21:27 Pulse Oximetry 99 06/29/24 21:27 Temperature 97.9 F 06/30/24 09:00 Pulse Rate 82 06/30/24 09:00 Respiratory Rate 16 06/30/24 09:00 Blood Pressure 150/76 H 06/30/24 09:00 Pulse Oximetry 99 06/30/24 09:00 Imaging Data Radiologist's impression: Impressions Head CT 06/30/24 06:40 IMPRESSION: 1. Old lacunar infarct in the right basal ganglia. 2. Stable moderate nonspecific cerebral white matter disease, which likely represents chronic small vessel ischemic disease. Cervical Spine CT 06/30/24 06:44 IMPRESSION: 1. No fracture 2. Severe cervical spondylosis. Hip/Pelvis X-Ray 06/30/24 08:19 IMPRESSION: 1. Mild osteoarthritis of the hips. Discharge Plan Discharge Clinical Impression: Head injury, Hip pain Patient Disposition: Home, Self-Care Condition: Stable Instructions: Antibiotic Form, Head Injury (ED) Additional Instructions: Have close follow-up with your primary care physician. If you have any worsening symptoms then please call or return to the emergency department. Patient Language: Kinyarwanda Prescriptions: No Action vitamin E 200 unit capsule 400 unit PO DAILY ascorbate calcium (vitamin C) 500 mg tablet 1 g PO BID cholecalciferol (vitamin D3) 50 mcg (2,000 unit) tablet 50 mcg PO DAILY Patient Comments: every other day amino ac-hydroly collagen-whey 15 gram-100 kcal/30 mL liquid 1 ea PO DAILY fluticasone propionate [Flonase Allergy Relief] 50 mcg/actuation spray,suspension 2 spray intranasal DAILY PRN (Reason: allergy symptoms) Qty: 48 1RF Rx Instructions: administer into each nostril Eylea 2 mg/0.05 mL solution 2 mg intravitreal ONCE calcium carbonate [Calcium 600] 600 mg calcium (1,500 mg) tablet 600 mg PO DAILY Rx Instructions: OTC PreserVision AREDS-2 250-90-40-1 mg capsule 1 tablet PO BID Rx Instructions: OTC Follow-up/Referrals: Yolanda Carlton APRN [Primary Care Provider] -
[2024-06-30 08:00] VITALS: BP 154/76; PULSE 78; RESP 16; TEMP 36.5; O2SAT 98
[2024-06-30 09:00] VITALS: BP 150/76; PULSE 82; RESP 16; TEMP 36.6; O2SAT 99
--- OUTSIDE RECORDS SUMMARY | 2024-07-07 15:03 | XMS_ITS | Encounter Summary ---
Author Organization [facility] Address [address] [place] [address] Care Team Providers Care Manager Quality Systems Name Role Phone Giselle Lorenzo MD Primary Care Provider Reason for Referral * Consultation (Routine) - Denied Specialty Diagnoses / Procedures Referred By Contac t Referred To Contact Neuro Ophthalmology Diagnoses Exudative age-related macular degeneration of right eye, unspecified stage (HCC) Unspecified optic neuritis Multiple sclerosis (HCC) Eloisa Cristina MD [address] [place] [address] Ext Scan Neuro Ophth Referral ID Status Reason Start Date Expiration Date V isits Requested Visits Authorized [id number] Denied Specialty Services Required 06/07/2024 06/07/2025 1 0 [facility] WELDER Encounter Details Date Type Department Care Team (Late st Contact Info) Description 06/07/2024 Transcribe Orders [facility] - Centralized Scheduling [address] [place] [phone] Eloisa Cristina MD [address] [place] [address] Exudative age-related macular degeneration of [...] sclerosis documented in this encounter Care Teams Manager Quality Systems Relationship Specialty Start Date End Date Giselle Lorenzo MD [address] [place] [phone] PCP - General 12/13/17 documented as of this encounter
--- OUTSIDE RECORDS SUMMARY | 2024-07-07 15:03 | XMS_ITS | Patient Health Summary ---
Author Organization [facility] Address [address] [place] [address] Care Team Providers Care Solar Power Installer Name Role Phone Giselle Lorenzo MD Primary Care Provider Note from [facility],non-owned Affiliates and Associated Physician Practices is amultiple site organization consisting of ambulatory clinics and hospital sitesin [place], [place] and [place]. This disclosure is being madepursuant to the Care Everywhere program and may not contain all information available regarding this patient. Last updated 18.[facility] Social History Tobacco Use Types Packs/Day Years Used Date Smoking Tobacco: Never Assessed Sex and Gender Information Value Date Recorded Sex Assigned at Not on file Gender Identity Not on file Sexual Orientation Not on file Care Teams Solar Power Installer Relationship Specialty Start Date End Date Giselle Lorenzo MD [address] [place] [phone] PCP - General 12/13/17
--- OUTSIDE RECORDS SUMMARY | 2024-07-07 15:03 | XMS_ITS | Clinical Summary ---
Author Organization [facility] Address [address] [place] [address] Care Team Providers Care Special Officer Automat Name Role Phone Giselle Lorenzo MD Primary Care Provider Source Comments [facility],non-owned Affiliates and Associated Physician Practices is amultiple site organization consisting of ambulatory clinics and hospital sitesin [place], [place], [place] and [place]. This disclosure is being madepursuant to the Care Everywhere program and may not contain all information available regarding this patient. Last updated 18.[facility] Encounters Date Type Department Care Team Description 06/07/[address] [facility] Physician [facility] - Centralized Scheduling [address] [place] [phone] Eloisa Cristina MD Exudative age-related macular degeneration [...] age to complete this topic Care Teams Special Officer Automat Relationship Specialty Start Date End Date Giselle Lorenzo MD [address] [place] [phone] PCP - General 12/13/17
--- OUTSIDE RECORDS SUMMARY | 2024-07-07 15:03 | XMS_ITS | Referral Summary ---
Author Organization [facility] Address [address] [facility] [place] [address] Care Team Providers Care Cable Maintainer Name Role Phone Giselle Lorenzo MD Primary Care Provider Source Comments [facility],non-owned Affiliates and Associated Physician Practices is amultiple site organization consisting of ambulatory clinics and hospital sitesin [place], [place], [place] and [place]. This disclosure is being madepursuant to the Care Everywhere program and may not contain all information available regarding this patient. Last updated 18.[facility] Encounters Date Type Department Care Team Description 06/07/2024 Transcribe Orders [facility] - Centralized Scheduling [address] [place] [address] Eloisa Cristina MD Exudative age-related macular degeneration [...] of Treatment Not on file Care Teams Cable Maintainer Relationship Specialty Start Date End Date Giselle Lorenzo MD [address] [place] [phone] [facility] - General 12/13/17
--- OUTSIDE RECORDS SUMMARY | 2024-07-07 15:03 | XMS_ITS ---
Author Organization [facility] Address [address] [place] [address] Care Team Providers Care Engine Turner Name Role Phone Brett Condon Primary Care [...] 024 Encounters Encounter Location Date Provider Diagnosis [address] [address] 03/08/2024 Brett Condon Dental examination Z01.20 Assessments Encounter Date Diagnosis (ICD Code) Assessment Notes Treatment Notes Treatment Clinical Notes Section Notes 03/08/2024 Dental examination (ICD-10 - Z01.20) Plan Of Treatment Next Appt Details Follow Up: prn, Reason: Progress Notes * MURPHY, AntwansDOB: [birth year] (83 yo F)Acc No.[id number]:03/08/2024 Dental Problem Focus Patient:?MURPHYKristen GILMANlis Provider:?Brett Condon DDS :1940???Age:83 Y???Sex:Female D ate:03/08/2024 Address:[address] [place], [place] [phone] Check In:07:56 AM CSTCheck O ut:09:57 AM CLASSROOM AIDE Subjective: * Chief Complaints: * ???1. Dental [...] FM, Srfc: , D0220 INTRAORL-PERIAPICAL 1 FILM [id number] * Follow Up:?prn * * Sign off status: Completed Visit Status:?CHK (Check Out ) true * Provider:?Brett Condon DDS Date:? 4 Generated for Joanna fowler/Kirsten/eTzeenatsmitting on:?07/07/2024 03:03 PM CLASSROOM AIDE History and Physical Notes * Examination Category [...]
--- OUTSIDE RECORDS SUMMARY | 2024-07-07 15:04 | XMS_ITS | Clinical Summary ---
Author Organization [facility] Address [address] [place] [address] Phone Care Team Providers Care Kaiako Kohanga Reo Name Role Phone Unavailable Primary Care Provider [...]
--- OUTSIDE RECORDS SUMMARY | 2024-07-07 15:04 | XMS_ITS | Encounter Summary ---
Author Organization [employer] Address [address] [place] [address] Care Team Providers Care Phytopathology Teacher Name Role Phone Unavailable Primary Care Provider Unavailabl e Encounter Details Date Type Department Care Team (Latest Contact Info) Description 02/21/2003 Inpatient Historical HIS PATIENT IN A BED Dax Javed MD [address] [facility] [address] [place] [address] CONVULSIONS, OTHER (Primary Dx) Social History Tobacco [...]
--- OUTSIDE RECORDS SUMMARY | 2024-07-07 15:04 | XMS_ITS | Encounter Summary ---
Author Organization [facility] Address [address] [place] [address] Care Team Providers Care College And Career Counselor Name Role Phone Unavailable Primary Care Provider Unavailabl e Encounter Details Date Type Department Care Team (Late st Contact Info) Description 02/21/2003 Outpatient Historical [facility] Services [facility] [address] [place] [address] [place] [address] Dax Javed MD [address] [place] [address] Social History Tobacco Use Types [...]
--- OUTSIDE RECORDS SUMMARY | 2024-07-07 15:04 | XMS_ITS | Continuity of Care Document ---
Author Organization [facility] Address [address] [place] [address] [place] [address] Phone Care Team Providers Care Market Development Analyst Name Role Phone Gume Rooney DO Unavailable Unavailable Advance Directives Directive Yes / No Effective Date File Name No Information Encounters Encounter Description Practice Location Reason(s) For Visit Diagnoses Date Provider Providers Copied on Encounter Formerly [facility], [address], [place], [place], [id number], [place] tel:[phone] [facility] No Information Nevin Castañeda. [address] [facility], [place], [address], [place]. tel:[phone] Family History Family Member Type Diagnosis Age At Onset No Information Payers Payer name Insurance type Covered alliance party ID Authoriza tion(s) No Information Social History [...]
--- OUTSIDE RECORDS SUMMARY | 2024-07-07 15:04 | XMS_ITS | Encounter Summary ---
Author Organization [employer] Address [address] [place] [address] Care Team Providers Care Cafeteria Server Name Role Phone Unavailable Primary Care Provider Unavailabl e Encounter Details Date Type Department Care Team (Late st Contact Info) Description 03/21/2003 Outpatient Historical HIS MRI DEPT Dax Javed MD [address] [facility] [address] [place] [address] ORGANIC BRAIN SYND NEC (Primary Dx) Social [...]
--- OUTSIDE RECORDS SUMMARY | 2024-07-07 15:04 | XMS_ITS | Encounter Summary ---
Author Organization [facility] Address [address] [place] [address] Care Team Providers Care Ironworker Machine Operator Name Role Phone Unavailable Primary Care Provider Unavailabl e Encounter Details Date Type Department Care Team (Latest Contact Info) Description 09/01/2006 Outpatient Historical HIS [facility] Giselle Hare MD Diffuse Cystic Mastopathy [...]
--- OUTSIDE RECORDS SUMMARY | 2024-07-07 15:04 | XMS_ITS | Patient Health Record ---
Author Organization [facility] Address [address] [place] [address] Care Team Providers Care Slide Forming Machine Operator Name Role Phone Brett Condon Primary Care [...] 03/08/2024 Encounters Encounter Location Date Provider Diagnosis [address] [address] 03/08/2024 Brett Condon Dental examination Z01.20 Assessments Encounter Date Diagnosis (ICD Code) Assessment Notes Treatment Notes Treatment Clinical Notes Section Notes 03/08/2024 Dental examination (ICD-10 - Z01.20) Plan Of Treatment No Information
--- OUTSIDE RECORDS SUMMARY | 2024-07-07 15:04 | XMS_ITS | Encounter Summary ---
Author Organization [employer] Address [address] [place] [address] Care Team Providers Care Cardiovascular Physician Assistant Name Role Phone Unavailable Primary Care Provider Unavailabl e Encounter Details Date Type Department Care Team (Late st Contact Info) Description 05/30/2003 Outpatient Historical Division of Neurology [address] [address] Dax Javed MD [address] [place] [address] Social History Tobacco Use Types [...]
--- OUTSIDE RECORDS SUMMARY | 2024-07-07 15:04 | XMS_ITS | Encounter Summary ---
Author Organization [email or web address] Address [address] [place] [address] Care Team Providers Care Broomcorn Seeder Name Role Phone Unavailable Primary Care Provider Unavailabl e Encounter Details Date Type Department Care Team (Late st Contact Info) Description 02/07/2003 Outpatient Historical Division of Neurology [address] [address] Dax Javed MD [address] [place] [address] Social History Tobacco Use Types [...]
--- OUTSIDE RECORDS SUMMARY | 2024-07-07 15:04 | XMS_ITS | Encounter Summary ---
Author Organization [employer] [facility] Address [address] [place] [address] Care Team Providers Care Steel Loader Name Role Phone Unavailable Primary Care Provider Unavailabl e Encounter Details Date Type Department Care Team (Latest Contact Info) Description 07/23/2016 5:45 PM HVAC LEAD - 07/23/2016 11:59 PM HVAC LEAD Hospital Encounter [facility] Laboratory Services [address] [facility] [address] [place] [id number] Nilsa Lindquist MD [address] [address] Discharge Disposition: Home or Self [...] Diagnosis Comments PATHOLOGY Pathology 07/23/2016 8:57 PM HVAC LEAD Encounter for biopsy documented in this encounter Results * PATHOLOGY (07/23/2016 8:57 PM HVAC LEAD) CASE REPORT Surgical Pathology Report ? Case: [id number] ? Authorizing Provider: ??Nilsa Lindquist MD ? Collected: ? 07/23/2016 08:57 PM ? Ordering Location: ? [facility] ?? Received: ?07/23/2016 08:58 PM ? Services [address] [place] ? Pathologist: ? Chey Patten MD ? Specimen: ?Tongue, Left border ? 07/28/2016 2:51 PM [facility] FINAL DIAGNOSIS Oral cavity, tongue, left lateral border, excision: - Irritation fibroma, inflamed with focal erosion. - Rare fungal organisms identified. 07/28/2016 2:51 PM [facility] IMEN DESCRIPTION Excisional biopsy left lateral border or tongue. 07/28/2016 2:51 PM [facility] OPERATIVE PROCEDURE Excisional biopsy. 07/28/2016 2:51 PM [facility] CLINICAL DIAGNOSIS A 6.4-mm, mucosal colored silk suture francois anterior border. 07/28/2016 2:51 PM [facility] GROSS DESCRIPTION Received in a single container [...] submitted labeled A1. LUIZA/delfina 07/28/2016 2:51 PM [facility] MICROSCOPIC DESCRIPTION The slides are labeled [id number] and Irais Murphy. Sections of the left [...] with an irritation fibroma. 07/28/2016 2:51 PM HVAC LEAD [facility] COMMENT Special stain and/or immunohistochemical results are interpreted with controls that demonstrate appropriate staining reactions. Note on use of immunocytochemistry reagents: This test was developed and its performance characteristic determined by [facility], Department of Laboratory Medicine. It has [...] WF, WB and WH are performed by [address] [place], [address]. All other case types are performed by [address] [facility], [address]. 07/28/2016 2:51 PM [facility] Tissue ENTIRE TONGUE / Unknown 07/23/2016 8:57 PM HVAC LEAD 07/23/2016 8:58 PM HVAC LEAD Nilsa Lindquist MD PATHOLOGY/CYTOLOGY O RDERABLES Performing Organization Address City/State/[facility] Co de Phone Number [facility]# [id number] [address] [place] [address] documented in this encounter Visit Diagnoses Diagnosis Encounter for biopsy- Primary Other specified pre-operative examination documented in this encounter
--- OUTSIDE RECORDS SUMMARY | 2024-07-07 15:04 | XMS_ITS | Encounter Summary ---
Author Organization [employer] Address [address] [place] [address] Care Team Providers Care Audiovisual Aids Technician Name Role Phone Unavailable Primary Care Provider Unavailabl e Encounter Details Date Type Department Care Team (Latest Contact Info) Description 04/02/2003 Outpatient Historical HIS NEURO PSYCHOLOGY [place]., [place] [address] [place] [address] GENERAL MERCHANDISE MANAGER DISORDER NEC (Primary Dx) Social History Tobacco [...]
== END 2024-06-30 09:19 | disposition home or self-care (01) ==
PROVIDERS: Emergency Provider Emergency Medicine; PCP Nurse Practitioner Family
DX: S09.90XA Unspecified injury of head, initial encounter (principal); M25.552 Pain in left hip; M16.0 Bilateral primary osteoarthritis of hip; G35 Multiple sclerosis; W01.0XXA Fall on same level from slipping, tripping and stumbling without subsequent striking against object, initial encounter
CPT/HCPCS: 70450; 72125; 73502; 99284

== ENCOUNTER 2024-08-05 15:25 | Emergency (ER) | payer OTHER, SELFPAY ==
--- NOTE | 2024-08-05 15:37 | ED_ITS ---
HPI - Skin/Abscess/Foreign Bdy General Chief complaint: Skin/Abscess/Foreign Body Stated complaint: Dog Bite Time Seen by Provider: 08/05/24 15:38 Source: patient Mode of arrival: ambulatory Limitations: no limitations History of Present Illness HPI narrative: Irais is an 83-year-old female patient presenting to the clinic today with complaints of a dog bite to her left 2nd knuckle. She reports that she was tr jassi to separate a female in heat with a no other male and the male dog bit her across her left 2nd knuckle. This occurred last night. She denies any fevers or chills. Does have some redness and swelling around the bite. History of allergy to penicillin. Related Data Home Medications ?Medication ?Instructions ?Recorded ?Confirmed ?Last Taken ?Type calcium carbonate (Calcium 600) 600 mg PO DAILY 02/23/20 03/28/24 Unknown History ascorbate calcium (vitamin C) 500 1 g PO BID 11/25/20 03/28/24 Unknown History mg tablet vitamin E 200 unit capsule 400 unit PO DAILY 11/25/20 03/28/24 Unknown History cholecalciferol (vitamin D3) 50 50 mcg PO DAILY 08/25/22 03/28/24 Unknown History mcg (2,000 unit) tablet vit C 250 mg-vit E 90 mg-zinc 40 1 tablet PO BID 03/18/23 03/28/24 Unknown History mg-copper 1 bk-rfoccy-ovcosw capsule (PreserVision AREDS-2) aflibercept 2 mg/0.05 mL 2 mg intravitreal ONCE 04/27/24 Unknown History intravitreal solution for injection (Eylea) njpgcnxp-cljxzkkl-dgelv acids cap PO 07/12/24 Unknown History capsule Allergies Allergy/AdvReac Type Severity Reaction Status Date / Time amoxicillin Allergy Unknown Hives / Verified 08/05/24 15:51 Red Face Penicillins Allergy Unknown Hives Verified 08/05/24 15:51 Review of Systems Review of Systems: Pertinent positives per HPI. Patient denies any fever, chills, rash, headache, visual changes, dizziness, cough, runny nose, sore throat, shortness of breath, chest pain, palpitations, nausea, vomiting, diarrhea, constipation, abdominal pain, or any urinary issues. PMF Past Medical History Medical History Multiple sclerosis Arthritis Allergies Osteoarthritis of both knees Surgical History Surgical History History of ankle surgery History of appendectomy (1961) History of elbow surgery Family History Family History Father Hypertension Cerebrovascular accident Patient's father is Mother Hypertension Family history of diabetes mellitus in first degree relative Family history of congestive heart failure Diabetes mellitus Sibling Family history of gastrointestinal disorder Family history of lung cancer Family history of heart disease in male family member before age 55 Patient's brother is Family history of cardiovascular disease Other Family history of malignant neoplasm of breast Social History Social History Social History: Surrogate medical decision maker: Kinza Dunn, daughter. Code status: Full code. Caffeine-occasional coffee Smoking status: Never smoker Second hand tobacco smoke exposure: Yes Alcohol intake: never Substance use: never Substance use type: does not use Do You Feel Safe in your Home?: Yes Lack of Transportation: No Lack of Food: Never True Current Housing: I Have Housing Concerned About Future Housing: No Difficulty Paying Gas/Electric Bills: No Difficulty Paying for Meds: No Currently Unemployed: No Education: High School Diploma/GED Difficulty w/ Childcare or Family Care: No Living arrangements: with family Occupation/Education: retired Gender identity (if verbalized by the patient): Female Sexual Orientation (if Verbalized by the Patient): Straight or Heterosexual Spiritual care concerns: No Agree to blood products: Yes Comments At the time of my signature, I reviewed and agree with the nursing past medical, surgical, social, and family history. There is no relevant family history pertinent to the patient complaint. Exam Narrative: General: Well-developed, well nourished, in no apparent distress Head: Normocephalic, atraumatic. Cardio: Regular rate and rhythm, s1 and s2 normal, no murmur appreciated. Resp: Clear to auscultation bilaterally, no rhonchi, rales, wheezing or rubs. Integumentary: Rena Lara, warm, and dry, approximately 1 cm superficial laceration with scabbing to the left 2nd knuckle with localized redness and swelling and tenderness to palpation with mild erythema. No discharge Course Course Emergency Course: Portions of this record may have been created with voice recognition software. Level of Care: Express Care Visit Vital Signs Vital signs: Vital Signs Temperature 36.6 C 08/05/24 15:44 Pulse Rate 76 08/05/24 15:44 Respiratory Rate 16 08/05/24 15:44 Blood Pressure 125/81 08/05/24 15:44 Pulse Oximetry 96 08/05/24 15:44 Temperature 36.6 C 08/05/24 15:44 Pulse Rate 76 08/05/24 15:44 Respiratory Rate 16 08/05/24 15:44 Blood Pressure 125/81 08/05/24 15:44 Pulse Oximetry 96 08/05/24 15:44 Vital signs reviewed MDM - Skin/Abscess/Foreign Bdy MDM Narrative Medical decision making narrative: At the time of visit patient is resting comfortably on the exam table. Patient appears to be nontoxic. Medications: Tdap 0.5 mL IM Plan: I suspect patient has an infected dog bite to the left 2nd knuckle. Prescription for Bactrim and metronidazole was sent to the pharmacy. Tdap was given in the clinic today Supportive measures were discussed with the patient and they voiced understanding discharge instructions and agrees to treatment plan. Return precautions reviewed Differential Diagnosis Differential diagnosis: Likely other (Animal bite, infected wound) Discharge Plan Discharge Clinical Impression: Infected dog bite Patient Disposition: Home, Self-Care Condition: Stable Instructions: Antibiotic Form, Animal Bite (ED), Wound Infection (ED) Additional Instructions: Increase fluids and stay well hydrated May take Tylenol/Motrin as needed for pain or fever May apply cool compresses to the affected area to help alleviate pain and swelling Take Bactrim and metronidazole as prescribed Follow-up with your primary care doctor in 2-3 days for wound check If symptoms worsen recommend going to the emergency room Patient Language: Indonesian Prescriptions: New metronidazole 500 mg tablet 500 mg PO Q8H 7 Days Qty: 21 0RF sulfamethoxazole-trimethoprim [Bactrim DS] 800-160 mg tablet 1 tablet PO Q12H 7 Days Qty: 14 0RF No Action vitamin E 200 unit capsule 400 unit PO DAILY ascorbate calcium (vitamin C) 500 mg tablet 1 g PO BID cholecalciferol (vitamin D3) 50 mcg (2,000 unit) tablet 50 mcg PO DAILY Patient Comments: every other day fluticasone propionate [Flonase Allergy Relief] 50 mcg/actuation spray,suspension 2 spray intranasal DAILY PRN (Reason: allergy symptoms) Qty: 48 1RF Rx Instructions: administer into each nostril Eylea 2 mg/0.05 mL solution 2 mg intravitreal ONCE aghhmrqg-fizkcjaa-zezyu acids Capsule PO calcium carbonate [Calcium 600] 600 mg calcium (1,500 mg) tablet 600 mg PO DAILY Rx Instructions: OTC PreserVision AREDS-2 250-90-40-1 mg capsule 1 tablet PO BID Rx Instructions: OTC Follow-up/Referrals: Yolanda Carlton APRN [Primary Care Provider] - Time of Disposition: 15:52 Quality NIHSS Nursing Documentation ED NIHSS nursing documentation: reviewed/agree
[2024-08-05 15:44] VITALS: BP 125/81; PULSE 76; RESP 16; TEMP 36.6; O2SAT 96
[2024-08-05] MEDS: TETANUS,DIPHTHERIA,AC PERTUSSIS ADULT (0.5 ML) BOOSTRIX IM (16:04)
== END 2024-08-05 16:11 | disposition home or self-care (01) ==
PROVIDERS: Emergency Provider Nurse Practitioner Family; PCP Nurse Practitioner Family
DX: S61.412A Laceration without foreign body of left hand, initial encounter (principal); L08.9 Local infection of the skin and subcutaneous tissue, unspecified; W54.0XXA Bitten by dog, initial encounter; Z23 Encounter for immunization; G35 Multiple sclerosis; M17.0 Bilateral primary osteoarthritis of knee
CPT/HCPCS: 90471; 90715; 99213; G0463

== ENCOUNTER 2025-04-26 15:21 | Outpatient (CLI) | payer OTHER, SELFPAY ==
--- NOTE | ~2025-04-26 | US_ITS ---
EXAMINATION: US carotid duplex BI DATE: 04/26/2025 16:04 INDICATION: Cerebral infarction TECHNIQUE: Grayscale, color Doppler, and pulsed Doppler images of the cervical carotid arteries were obtained. The degree of vessel stenosis is placed in one of the following categories: normal, <50%, 50-69%, >=70% but less than near- occlusion, near-occlusion, or total occlusion. Note that percent stenosis relative to normal distal artery lumen diameter is indirectly measured from velocity measurements as described by Jaxon, et al. Radiology 2003; 229:340-346. Notes: Normal: Peak systolic velocity <125 centimeters/sec and no plaque <50%. Peak systolic velocity <125 (EDV <40; ICA/CCA PSV ratio <2.0; used these factors only a tandem lesions or low cardiac output or contralateral disease) 50-69 %: PSV 125-230 (EDV 40-100; ratio 2-4) >= 70% but less than near occlusion: PSV greater than 230 (EDV > 100; ratio> 4.0) Near Occlusion: PSV that is variable; markedly narrowed lumen Occlusion: Absent flow on color/spectral Doppler and no lumen on malin scale. COMPARISON: None. FINDINGS: RIGHT: The right common carotid artery (CCA) peak systolic velocity (PSV) is 83 cm/s. The right internal carotid artery (ICA) PSV is 69 cm/s. The right ICA end- diastolic velocity (EDV) is 15 cm/s. The right ICA/CCA PSV ratio is 0.8. The external carotid artery (ECA) PSV is 86 cm/s. There is antegrade flow in the right vertebral artery. LEFT: The left CCA PSV is 89 cm/s. The left ICA PSV is 81 cm/s. The left ICA EDV is 14 cm/s. The left ICA/CCA PSV ratio is 0.9. The ECA PSV is 91 cm/s. There is antegrade flow in the left vertebral artery. IMPRESSION: 1. Less than 50% stenosis in the right internal carotid artery by sonographic criteria. 2. Less than 50% stenosis in the left internal carotid artery by sonographic criteria. Reviewed, dictated and finalized at location O. IMPRESSION: 1. Less than 50% stenosis in the right internal carotid artery by sonographic isabella wright. 2. Less than 50% stenosis in the left internal carotid artery by sonographic sean rao.
--- OUTSIDE RECORDS SUMMARY | 2025-04-26 16:23 | XMS_ITS | Encounter Summary ---
Author Organization [employer] [facility] Address [address] [place] [address] Care Team Providers Care Development Eng Name Role Phone Unavailable Primary Care Provider Unavailabl e Encounter Details Date Type Department Care Team (Latest Contact Info) Description 09/01/2006 Outpatient Historical HIS [facility] Giselle Hare MD Diffuse Cystic Mastopathy (Primary Dx) Social History Tobacco Use Types Packs/Day Years Used Date Smoking Tobacco: Never Assessed Comments Unknown Sex and Gender Information Value Date Recorded Sex Assigned at Not on file Legal Sex Female 5:13 AM ENTRY EXAMINER Gender Identity Not on file Sexual Orientation Not on file documented as of this encounter Plan of Treatment Not on file documented as of this encounter Visit Diagnoses Diagnosis Diffuse cystic mastopathy- Primary documented in this encounter
--- OUTSIDE RECORDS SUMMARY | 2025-04-26 16:23 | XMS_ITS | Encounter Summary ---
Author Organization [facility] Address [address] [place] [address] Care Team Providers Care Director Of Broadcast Name Role Phone Giselle Lorenzo MD Primary Care Provider [phone] Reason for Referral * Consultation (Routine) - Denied Specialty Diagnoses / Procedures Referred By Contac t Referred To Contact Neuro Ophthalmology Diagnoses Exudative age-related macular degeneration of right eye, unspecified stage (HCC) Unspecified optic neuritis Multiple sclerosis Eloisa Cristina MD [address] [place] [address] Phone: tel: fax: Outside External Scanning - Neuro Ophthalmology Referral ID Status Reason Start Date Expiration Date V isits Requested Visits Authorized [id number] Denied Specialty Services Required 06/07/2024 06/07/2025 1 0 [facility] Encounter Details Date Type Department Care Team (Late st Contact Info) Description 06/07/2024 Transcribe Orders [facility] - Centralized Scheduling [address] [place] [address] Eloisa Cristina MD [address] [place] [address] Exudative age-related macular degeneration of right eye, unspecified stage ; Unspecified optic neuritis; Multiple sclerosis Social History Tobacco Use Types Packs/Day Years Used Date Smoking Tobacco: Never Assessed Comments Unknown Sex and Gender Information Value Date Recorded Sex Assigned at Not on file Legal Sex Female 7:13 AM CDT Gender Identity Not on file Sexual Orientation Not on file documented as of this encounter Plan of Treatment Scheduled Referrals Name Type Priority Associated Diagnoses Order Schedule AMB REFERRAL TO OPHTHALMOLOGY Outpatient Referral Routine Exudative age-related macular degeneration of right eye, unspecified stage Unspecified optic neuritis Multiple sclerosis 1 Occurrences starting 06/07/2024 until 06/07/2025 documented as of this encounter Visit Diagnoses Diagnosis Exudative age-related macular degeneration of right eye, unspecified stage (HCC)- Primary Unspecified optic neuritis Multiple sclerosis documented in this encounter Care Teams Director Of Broadcast Relationship Specialty Start Date End Date Giselle Lorenzo MD [address] [place] [phone] PCP - General 12/13/17 documented as of this encounter
--- OUTSIDE RECORDS SUMMARY | 2025-04-26 16:23 | XMS_ITS | Encounter Summary ---
Author Organization [employer] Address [address] [place] [address] Care Team Providers Care Patrol Police Sergeant Name Role Phone Unavailable Primary Care Provider Unavailabl e Encounter Details Date Type Department Care Team (Latest Contact Info) Description 02/21/2003 Inpatient Historical HIS PATIENT IN A BED Dax Javed MD [address] [facility] [address] [place] [address] CONVULSIONS, OTHER (CMS/[facility]) (Primary Dx) Social History Tobacco Use Types Packs/Day Years Used Date Smoking Tobacco: Never Assessed Comments Unknown Sex and Gender Information Value Date Recorded Sex Assigned at Not on file Legal Sex Female 5:13 AM SUPERVISOR CARDING Gender Identity Not on file Sexual Orientation Not on file documented as of this encounter Plan of Treatment Not on file documented as of this encounter Visit Diagnoses Diagnosis Other convulsions- Primary documented in this encounter
--- OUTSIDE RECORDS SUMMARY | 2025-04-26 16:23 | XMS_ITS | Encounter Summary ---
Author Organization [email or web address] Address [address] [place] [address] Care Team Providers Care Hospital Aide Name Role Phone Unavailable Primary Care Provider Unavailabl e Encounter Details Date Type Department Care Team (Late st Contact Info) Description 03/21/2003 Outpatient Historical HIS MRI DEPT Dax Javed MD [address] [facility] [address] [place] [phone] ORGANIC BRAIN SYND NEC (Primary Dx) Social History Tobacco Use Types Packs/Day Years Used Date Smoking Tobacco: Never Assessed Comments Unknown Sex and Gender Information Value Date Recorded Sex Assigned at Not on file Legal Sex Female 5:13 AM PRECISION ASSEMBLER BENCH Gender Identity Not on file Sexual Orientation Not on file documented as of this encounter Plan of Treatment Not on file documented as of this encounter Visit Diagnoses Diagnosis 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
--- OUTSIDE RECORDS SUMMARY | 2025-04-26 16:23 | XMS_ITS | Encounter Summary ---
Author Organization [employer] Address [address] [place] [address] Care Team Providers Care Stemhole Borer And Topper Name Role Phone Unavailable Primary Care Provider Unavailabl e Encounter Details Date Type Department Care Team (Latest Contact Info) Description 04/02/2003 Outpatient Historical HIS NEURO PS[place]CHOLOGY [place] V., [place] [address] [place] [address] RACEBOOK WRITER DISORDER NEC (Primary Dx) Social History Tobacco Use Types Packs/Day Years Used Date Smoking Tobacco: Never Assessed Comments Unknown Sex and Gender Information Value Date Recorded Sex Assigned at Not on file Legal Sex Female 5:13 AM AIRCRAFT LIFE SUPPORT FITTER Gender Identity Not on file Sexual Orientation Not on file documented as of this encounter Plan of Treatment Not on file documented as of this encounter Visit Diagnoses Diagnosis Other specified disorder of nervous system- Primary documented in this encounter
--- OUTSIDE RECORDS SUMMARY | 2025-04-26 16:23 | XMS_ITS | Encounter Summary ---
Author Organization [email or web address] Address [address] [place] [address] Care Team Providers Care Package Worker Name Role Phone Unavailable Primary Care Provider Unavailabl e Encounter Details Date Type Department Care Team (Late st Contact Info) Description 05/30/2003 Outpatient Historical Division of Neurology [address] [address] Dax Javed MD [address] [place] [address] Social History Tobacco Use Types Packs/Day Years Used Date Smoking Tobacco: Never Assessed Comments Unknown Sex and Gender Information Value Date Recorded Sex Assigned at Not on file Legal Sex Female 5:13 AM CURRICULUM CONSULTANT Gender Identity Not on file Sexual Orientation Not on file documented as of this encounter Plan of Treatment Not on file documented as of this encounter Visit Diagnoses Not on filedocumented in this encounter
--- OUTSIDE RECORDS SUMMARY | 2025-04-26 16:23 | XMS_ITS | Patient Health Record ---
Author Organization Address [address] [place] [address] Care Team Providers Care Community Advocate Name Role Phone Taurus Brett Primary Care Provider [phone] Allergies Allergen (clinical drug ingredient) Drug/Non Drug Allergy documented on EMR Reaction Allergy Type Onset Date Status Penicillin Unknown Drug Allergy Active Reason For Referral No Information Plan Of Treatment No Information
--- OUTSIDE RECORDS SUMMARY | 2025-04-26 16:23 | XMS_ITS | Encounter Summary ---
Author Organization [facility] Address [address] [place] [address] Care Team Providers Care Mold Cooler Name Role Phone Unavailable Primary Care Provider Unavailabl e Encounter Details Date Type Department Care Team (Late st Contact Info) Description 02/07/2003 Outpatient Historical Division of Neurology [address] [address] Dax Javed MD [address] [place] [address] Social History Tobacco Use Types Packs/Day Years Used Date Smoking Tobacco: Never Assessed Comments Unknown Sex and Gender Information Value Date Recorded Sex Assigned at Not on file Legal Sex Female 5:13 AM CERTIFIED NURSING ATTENDANT Gender Identity Not on file Sexual Orientation Not on file documented as of this encounter Plan of Treatment Not on file documented as of this encounter Visit Diagnoses Not on filedocumented in this encounter
--- OUTSIDE RECORDS SUMMARY | 2025-04-26 16:23 | XMS_ITS | Encounter Summary ---
Author Organization [facility] Address [address] [place] [address] Care Team Providers Care Dust Control Engineer Name Role Phone Unavailable Primary Care Provider Unavailabl e Encounter Details Date Type Department Care Team (Late st Contact Info) Description 02/21/2003 Outpatient Historical [facility] [place] [address] [place] [address] Dax Javed MD [address] [place] [address] Social History Tobacco Use Types Packs/Day Years Used Date Smoking Tobacco: Never Assessed Comments Unknown Sex and Gender Information Value Date Recorded Sex Assigned at Not on file Legal Sex Female 5:13 AM ELECTRIC DEICER INSPECTOR Gender Identity Not on file Sexual Orientation Not on file documented as of this encounter Plan of Treatment Not on file documented as of this encounter Visit Diagnoses Not on filedocumented in this encounter
--- OUTSIDE RECORDS SUMMARY | 2025-04-26 16:23 | XMS_ITS | Clinical Summary ---
Author Organization [facility] Address [address] [place] [address] Care Team Providers Care Interlocking And Signal Mechanic Name Role Phone Reg Colunga MD Primary Care Provider [phone] Allergies Active Allergy Reactions Criticality Noted Date Comments Penicillin Rash Medium 12/21/2024 Penicillin G Medications omega 5-fxz-ybt-fish oil (FISH OIL) 100-160-1,000 mg capsule 0 10/03/2012 Active magnesium gluconate 200 mg tablet 200 mg. 0 10/03/2012 Active calcium carbonate (CALCIUM 600) 1,500 mg (600 mg of elemental calcium) tablet 0 10/03/2012 Act carrington vitamin E (AQUASOL E) 400 unit capsule 0 10/03/2012 Active phenazopyridine (AZO) 95 mg tablet 95 mg. 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 (10/07/2016): White matter changes Memory loss 11/18/2013 Overview (10/09/2016): Memory loss Surgical History Surgery Date Site/Laterality Comments OTHER SURGICAL HISTORY uterine fibroids removed OTHER SURGICAL HISTORY Left breast cystectomy APPENDECTOMY Appendectomy OTHER SURGICAL HISTORY right fracture forearm surgery OTHER SURGICAL HISTORY D&C Medical History Medical History Date Comments Hx Other Medical macular degener ation Hx Other Medical seasonal allerg ies Family History Medical History Relation Name Comments Brain Aneurysm Father 2 brain aneurys m; Cause of : brain aneurysm Asthma Mother 2 Asthma; Diabetes Mother 2 Diabetes mellit us; Heart failure Mother 2 Congestive hea rt failure; Relation Name Status Comments Father 1 (Age 55) Father 2 Mother 1 Alive Mother 2 Social History Tobacco Use Types Packs/Day Years Used Date Smoking Tobacco: Never Smokeless Tobacco: Never Tobacco Cessation:Counseling Given: Not Answered Alcohol Use Standard Drinks/Week Comments No 0 (1 standard drink = 0.6 oz pur e alcohol) AUDIT-C Answer Date Recorded Q1: How often do you have a drink containing alc ohol? Never 08/17/2024 Average Number of Drinks Not on file 025 Frequency of Binge Drinking Not on file 08/05 Comments Unknown Sex and Gender Information Value Date Recorded Sex Assigned at Not on file Legal Sex Female 10:40 AM AERODYNAMIC CONSULTANT Gender Identity Not on file Sexual Orientation Not on file Obstetrics History Last Filed Vital Signs Vital Sign Reading Time Taken Comments Blood Pressure 112/68 10/03/2012 11:21 AM CDT Pulse 62 10/03/2012 11:21 AM CDT Temperature - - Respiratory Rate - - Oxygen Saturation - - Inhaled Oxygen Concentration - - Weight 60.3 kg (133 lb) 10/03/2012 11:21 AM CDT Height 157.5 cm (5' 2) 10/03/2012 11:21 AM CDT Body Mass Index 24.33 10/03/2012 11:21 AM CDT Plan of Treatment Health Maintenance Due Date Last Done Comments Depression Screening 1941 Fall Risk Assessment 1940 Osteoporosis Screening-Bone Density Scan 1940 Hepatitis B Screening 09/26/1959 Pneumococcal vaccine 65+ (1 of 1 - PCV) 09/26/1991 Zoster Vaccine (1 of 2) 09/26/1991 Well Visit 65+ 2006 Influenza Vaccine (#1) 2025 DTaP/Tdap/Td Vaccine (2 - Td or Tdap) 08/05/203407/2024 Insurance [facility] Care Teams Interlocking And Signal Mechanic Relationship Specialty Start Date End Date Reg Colunga MD [address] [place] [address] PCP - General Family Practice 08/14/24
--- OUTSIDE RECORDS SUMMARY | 2025-04-26 16:23 | XMS_ITS | Clinical Summary ---
Author Organization [facility] Address [address] [place] [address] Phone Care Team Providers Care Billet Heater Operator Name Role Phone Unavailable Primary Care Provider Unavailabl e Social History Tobacco Use Types Packs/Day Years Used Date Smoking Tobacco: Never Assessed Comments Unknown Sex and Gender Information Value Date Recorded Sex Assigned at Not on file Legal Sex Female 5:13 AM METAL PATTERNMAKER Gender Identity Not on file Sexual Orientation Not on file Plan of Treatment Health Maintenance Due Date Last Done Comments DTAP/TDAP/TD VACCINES (1 - Tdap) 1960 PNEUMOCOCCAL VACCINE 50+ YEARS (1 of 1 - PCV) 09/25/18 92 ZOSTER VACCINE (1 of 2) 09/26/1991 OSTEOPOROSIS SCREENING 2006 RSV VACCINE (60+ or ) (1 - 1-dose 75+ series) 2016 INFLUENZA VACCINE (#1) 2025
--- OUTSIDE RECORDS SUMMARY | 2025-04-26 16:23 | XMS_ITS | Clinical Summary ---
Author Organization [facility] Address [address] [place] [address] Care Team Providers Care Clerk General Office Name Role Phone Giselle Lorenzo MD Primary Care Provider Source Comments [facility],non-owned Affiliates and Associated Physician Practices is amultiple site organization consisting of ambulatory clinics and hospital sitesin [place], [place], [place] and [place]. This disclosure is being madepursuant to the Care Everywhere program and may not contain all information available regarding this patient. Last updated 18.[email or web address] Social History Tobacco Use Types Packs/Day Years Used Date Smoking Tobacco: Never Assessed Comments Unknown Sex and Gender Information Value Date Recorded Sex Assigned at Not on file Legal Sex Female 7:13 AM CDT Gender Identity Not on file Sexual Orientation Not on file Plan of Treatment Health Maintenance Due Date Last Done Comments BONE DENSITY TESTING 1940 MEDICARE AWV 12 MONTHS 1940 DTAP/TDAP/TD VACCINES (1 - Tdap) 1960 PNEUMOCOCCAL VACCINE 50+ (1 of 1 - PCV) 09/26/1991 ZOSTER VACCINE (1 of 2) 09/26/1991 Respiratory Syncytial Virus (RSV) Vaccine Pt: or over 60 yrs (1 - 1-dose 75+ series) 2016 DEPRESSION SCREENING 07/05/2024 COVID-19 VACCINE ( - 2023-2 5 season) 2025 INFLUENZA VACCINE (#1) 2025 HEPATITIS B VACCINE Aged Out No longe r eligible based on patient's age to complete this topic HIB VACCINE Aged Out No longer eligi ble based on patient's age to complete this topic HPV VACCINE Aged Out No longer eligi ble based on patient's age to complete this topic MENINGOCOCCAL (Group B) VACC INE SHARED DECISION-MAKING Aged Out No longer eligibl e based on patient's age to complete this topic MENINGOCOCCAL GROUPS A/C/Y/W VACCINE Aged Out No longer eligible b ased on patient's age to complete this topic Insurance [employer] Care Teams Clerk General Office Relationship Specialty Start Date End Date Giselle Lorenzo MD [address] [place] [phone] PCP - General 12/13/17
== END 2025-04-26 15:22 | disposition home or self-care (01) ==
PROVIDERS: PCP Nurse Practitioner Family; Visit Provider Psychiatry & Neurology Neurology
DX: I65.23 Occlusion and stenosis of bilateral carotid arteries (principal)
CPT/HCPCS: 93880